=== PATIENT | male | born 1970 | race Caucasian/White ===

== ENCOUNTER → 2017-10-14 09:49 | Outpatient (CLI) | payer BC, SELFPAY ==
[2017-10-14 12:30] LABS: Hemoglobin A1c 6.3 % (4.2-6.3)
[2017-10-14 12:53] LABS: Microalbumin:Creatinine Ratio 627.5 mg/g CRE (<30 mg/g CRE)
[2017-10-14 12:56] LABS: ALB/GLOB Ratio 1.2 RATIO (0.9-2.4); AST(SGOT) 20 U/L (15-37); Alanine Aminotransfer ALT/SGPT 25 U/L (16-61); Alkaline Phosphatase 95 U/L (45-117); Anion Gap 7 (5-15); BUN 13 mg/dL (7-18); BUN/Creat Ratio 19.1 RATIO (10-20); Calcium,Total 9.9 mg/dL (8.5-10.1); Chloride 106 mmol/L (98-107); Cholesterol 173 mg/dL (200); Creatinine, Serum 0.68 mg/dL (0.70-1.30); EST Glomerular Filtration Rate 132 mL/min (>60); Est Glom Filt Rate - Afr Amer 160 mL/min (>60); Globulin 3.3 g/dL (2.2-4.2); Glucose 136 mg/dL (74-106); High Density Lipoprotein 28 mg/dL; Magnesium 1.8 mg/dL (1.6-2.6); Potassium 4.1 mmol/L (3.5-5.1); Protein, Total 7.3 g/dL (6.4-8.2); Sodium Level 139 mmol/L (136-145); Thyroid Stim Hormone (TSH) 2.52 uIU/mL (0.358-3.74); Triglycerides 178 mg/dL; Very Low Density Lipoprotein 36 mg/dL (5-40)
== END ==
PROVIDERS: Family Provider Family Medicine; PCP Family Medicine; Visit Provider Family Medicine
DX: I10 Essential (primary) hypertension (principal); E78.5 Hyperlipidemia, unspecified; E66.9 Obesity, unspecified; E11.29 Type 2 diabetes mellitus with other diabetic kidney complication; N28.9 Disorder of kidney and ureter, unspecified
CPT/HCPCS: 36415; 80053; 80061; 82043; 82570; 83036; 83735; 84443

== ENCOUNTER → 2018-04-21 08:34 | Outpatient (CLI) | payer BC, SELFPAY ==
[2018-04-21 15:59] LABS: Absolute Lymphocyte Count 1.88 X10^3/ul (0.83-4.51); Absolute Neutrophil Count 3.9 X10^3/uL (2.0-7.7); Basophil# 0.06 X10^3/uL; Basophil% 0.9 % (0-1); Eosinophil# 0.13 X10^3/uL; Hematocrit 42.9 % (40-54); Hemoglobin 14.2 g/dl (13.0-16.5); Lymphocyte # 1.88 X10^3/ul (4.0); Lymphocyte % 28.8 % (19-41); Mean Corp Hgb Conc 33.1 g/gl (32-36); Mean Corpuscular Hgb 29.6 pg (27.0-32.0); Mean Corpuscular Volume 89.6 fL (80-94); Mean Platelet Vol. 9.9 fl (6.2-12.0); Monocyte# 0.57 X10^3/uL; Monocyte% 8.7 % (0-10); Neutrophil # 3.86 X10^3/uL (2.7-7.7); Neutrophil % 59.3 % (47-70); POSITIVE COUNT NO; POSITIVE DIFFERENTIAL NO; POSITIVE MORPHOLOGY NO; Platelet Count 255 K/mm3 (150-450); RBC Distribution Width CV 12.2 % (11.6-14.6); Red Blood Count 4.79 M/mm3 (4.6-6.2); White Blood Count 6.5 K/mm3 (4.4-11.0)
[2018-04-21 16:06] LABS: ALB/GLOB Ratio 1.2 RATIO (0.9-2.4); AST(SGOT) 18 U/L (15-37); Alanine Aminotransfer ALT/SGPT 21 U/L (16-61); Albumin, Serum 3.8 g/dL (3.2-5.0); Alkaline Phosphatase 92 U/L (45-117); Anion Gap 8 (5-15); BUN 12 mg/dL (7-18); BUN/Creat Ratio 15.8 RATIO (10-20); Calcium,Total 9.5 mg/dL (8.5-10.1); Chloride 108 mmol/L (98-107); Cholesterol 176 mg/dL (200); Creatinine, Serum 0.76 mg/dL (0.70-1.30); EST Glomerular Filtration Rate 117 mL/min (>60); Est Glom Filt Rate - Afr Amer 141 mL/min (>60); Globulin 3.3 g/dL (2.2-4.2); Glucose 132 mg/dL (74-106); High Density Lipoprotein 28 mg/dL; Potassium 4.4 mmol/L (3.5-5.1); Protein, Total 7.1 g/dL (6.4-8.2); Sodium Level 139 mmol/L (136-145); Triglycerides 135 mg/dL; Very Low Density Lipoprotein 27 mg/dL (5-40)
[2018-04-21 16:25] LABS: Hemoglobin A1c 5.7 % (4.2-6.3)
== END ==
PROVIDERS: Family Provider Family Medicine; PCP Family Medicine; Visit Provider Family Medicine
DX: E78.5 Hyperlipidemia, unspecified (principal); E11.9 Type 2 diabetes mellitus without complications
CPT/HCPCS: 36415; 80053; 80061; 83036; 85025

== ENCOUNTER → 2019-03-23 | Outpatient (CLI) | payer BC, SELFPAY ==
[2019-03-23 13:56] LABS: Hematocrit 43.3 % (40-54); Mean Corp Hgb Conc 34.6 g/dL (32-36); Mean Corpuscular Hgb 30.2 pg (27.0-32.0); Mean Corpuscular Volume 87.3 fL (80-94); Mean Platelet Vol. 10.4 fl (6.2-12.0); Platelet Count 274 K/mm3 (150-450); RBC Distribution Width CV 11.5 % (11.6-14.6); RBC Distribution Width SD 36.6 fl (35.1-43.9); Red Blood Count 4.96 M/mm3 (4.6-6.2); White Blood Count 6.9 K/mm3 (4.4-11.0)
[2019-03-23 14:35] LABS: ALB/GLOB Ratio 1.2 RATIO (0.9-2.4); AST(SGOT) 17 U/L (15-37); Alanine Aminotransfer ALT/SGPT 25 U/L (16-61); Albumin, Serum 3.8 g/dL (3.2-5.0); Alkaline Phosphatase 115 U/L (45-117); Anion Gap 11 (5-15); BUN 17 mg/dL (7-18); BUN/Creat Ratio 19.1 RATIO (10-20); Calcium,Total 9.8 mg/dL (8.5-10.1); Chloride 104 mmol/L (98-107); Creatinine, Serum 0.89 mg/dL (0.70-1.30); EST Glomerular Filtration Rate 97 mL/min (>60); Est Glom Filt Rate - Afr Amer 117 mL/min (>60); Globulin 3.2 g/dL (2.2-4.2); Glucose 339 mg/dL (74-106); Potassium 4.2 mmol/L (3.5-5.1); Sodium Level 140 mmol/L (136-145); T4 Free Direct 0.98 ng/dL (0.76-1.46); Thyroid Stim Hormone (TSH) 3.26 uIU/mL (0.358-3.74)
[2019-03-23 15:06] LABS: Hemoglobin A1c 7.1 % (4.2-6.3)
[2019-03-27 12:07] LABS: Testosterone, Free 6.39 ng/dL (5.00-21.00)
[2019-03-29 13:33] LABS: Testosterone, % Free 2.72 % (1.50-4.20); Testosterone, Total 235 ng/dL (264-916)
== END | disposition home or self-care (01) ==
LOC: MFPLAB 12:15
PROVIDERS: Family Provider Family Medicine; PCP Family Medicine; Referring Provider Family Medicine; Visit Provider Family Medicine
DX: F41.1 Generalized anxiety disorder (principal); R37 Sexual dysfunction, unspecified; E11.9 Type 2 diabetes mellitus without complications
CPT/HCPCS: 36415; 80053; 83036; 84402; 84403; 84439; 84443; 84481; 85027

== ENCOUNTER → 2020-03-29 11:49 | Outpatient (CLI) | payer BC, SELFPAY ==
[2020-03-29 15:32] LABS: Absolute Lymphocyte Count 2.12 X10^3/uL (0.83-4.51); Basophil# 0.07 X10^3/uL; Eosinophil# 0.07 X10^3/uL; Hematocrit 45.3 % (40-54); Lymphocyte # 2.12 X10^3/ul (4.0); Lymphocyte % 31.2 % (19-41); Mean Corp Hgb Conc 33.1 g/dL (32-36); Mean Corpuscular Hgb 29.8 pg (27.0-32.0); Mean Corpuscular Volume 90.1 fL (80-94); Mean Platelet Vol. 9.9 fl (6.2-12.0); Monocyte# 0.45 X10^3/uL; Monocyte% 6.6 % (0-10); NRBC Flagged by Analyzer 0 % (0-5); Neutrophil # 4.04 X10^3/uL (2.7-7.7); Neutrophil % 59.6 % (47-70); Platelet Count 292 K/mm3 (150-450); RBC Distribution Width CV 11.7 % (11.6-14.6); RBC Distribution Width SD 37.7 fl (35.1-43.9); Red Blood Count 5.03 M/mm3 (4.6-6.2); White Blood Count 6.8 K/mm3 (4.4-11.0)
[2020-03-29 15:46] LABS: Hemoglobin A1c 7.8 % (3.8-5.6)
[2020-03-29 15:53] LABS: ALB/GLOB Ratio 1.2 RATIO (0.9-2.4); AST(SGOT) 16 U/L (15-37); Alanine Aminotransfer ALT/SGPT 22 U/L (16-61); Albumin, Serum 4.1 g/dL (3.2-5.0); Alkaline Phosphatase 97 U/L (45-117); Anion Gap 7 (5-15); BUN 20 mg/dL (7-18); BUN/Creat Ratio 21.7 RATIO (10-20); Calcium,Total 10.7 mg/dL (8.5-10.1); Chloride 106 mmol/L (98-107); Cholesterol 195 mg/dL (200); Creatinine, Serum 0.92 mg/dL (0.70-1.30); EST Glomerular Filtration Rate 92 mL/min (>60); Est Glom Filt Rate - Afr Amer 112 mL/min (>60); Globulin 3.5 g/dL (2.2-4.2); Glucose 211 mg/dL (74-106); High Density Lipoprotein 28 mg/dL; Potassium 4.2 mmol/L (3.5-5.1); Protein, Total 7.6 g/dL (6.4-8.2); Sodium Level 138 mmol/L (136-145); Triglycerides 402 mg/dL
== END ==
PROVIDERS: PCP Family Medicine; Referring Provider Family Medicine; Visit Provider Registered Nurse
DX: E11.9 Type 2 diabetes mellitus without complications (principal); I10 Essential (primary) hypertension
CPT/HCPCS: 36415; 80053; 80061; 83036; 85025

== ENCOUNTER → 2021-04-16 16:58 | Outpatient (CLI) | payer BC, SELFPAY ==
[2021-04-16 17:45] LABS: Absolute Lymphocyte Count 2.52 X10^3/uL (0.83-4.51); Absolute Neutrophil Count 4.1 X10^3/uL (2.0-7.7); Basophil# 0.09 X10^3/uL; Basophil% 1.2 % (0-1); Eosinophil# 0.07 X10^3/uL; Eosinophils% 0.9 % (0-5); Hematocrit 41.4 % (40-54); Hemoglobin 14.1 g/dL (13.0-16.5); Lymphocyte # 2.52 X10^3/ul (0.83-4.51); Lymphocyte % 33.9 % (19-41); Mean Corp Hgb Conc 34.1 g/dL (32-36); Mean Corpuscular Volume 88.1 fL (80-94); Mean Platelet Vol. 9.9 fl (6.2-12.0); Monocyte% 8.1 % (0-10); NRBC Flagged by Analyzer 0 % (0-5); Neutrophil % 55.2 % (47-70); Platelet Count 289 K/mm3 (150-450); RBC Distribution Width CV 11.6 % (11.6-14.6); RBC Distribution Width SD 37.2 fl (35.1-43.9); White Blood Count 7.4 K/mm3 (4.4-11.0)
[2021-04-16 18:04] LABS: ALB/GLOB Ratio 1.2 RATIO (0.9-2.4); AST(SGOT) 9 U/L (15-37); Alanine Aminotransfer ALT/SGPT 21 U/L (16-61); Alkaline Phosphatase 110 U/L (45-117); Anion Gap 7 (5-15); BUN 15 mg/dL (7-18); BUN/Creat Ratio 17.6 RATIO (10-20); Chloride 107 mmol/L (98-107); Cholesterol 186 mg/dL (200); Creatinine, Serum 0.85 mg/dL (0.70-1.30); EST Glomerular Filtration Rate 101 mL/min (>60); Est Glom Filt Rate - Afr Amer 122 mL/min (>60); Globulin 3.4 g/dL (2.2-4.2); Glucose 222 mg/dL (74-106); High Density Lipoprotein 30 mg/dL; PSA,Total - Annual Screen 0.73 ng/mL (0.00-4.00); Potassium 3.9 mmol/L (3.5-5.1); Protein, Total 7.4 g/dL (6.4-8.2); Sodium Level 139 mmol/L (136-145); Thyroid Stim Hormone (TSH) 2.52 uIU/mL (0.358-3.74); Triglycerides 349 mg/dL; Very Low Density Lipoprotein 70 mg/dL (5-40)
[2021-04-16 19:09] LABS: Microalbumin:Creatinine Ratio 268.1 mg/g CRE (<30 mg/g CRE)
== END ==
PROVIDERS: PCP Family Medicine; Referring Provider Family Medicine; Visit Provider Family Medicine
DX: I10 Essential (primary) hypertension (principal); Z12.5 Encounter for screening for malignant neoplasm of prostate
CPT/HCPCS: 36415; 80053; 80061; 82043; 82570; 84153; 84443; 85025; G0103

== ENCOUNTER → 2021-07-24 11:36 | Outpatient (CLI) | payer BC, SELFPAY ==
[2021-07-24 15:01] LABS: Absolute Lymphocyte Count 2.08 X10^3/uL (0.83-4.51); Absolute Neutrophil Count 4.3 X10^3/uL (2.0-7.7); Basophil# 0.09 X10^3/uL; Basophil% 1.3 % (0-1); Eosinophil# 0.08 X10^3/uL; Eosinophils% 1.1 % (0-5); Hematocrit 44.3 % (40-54); Hemoglobin 15.2 g/dL (13.0-16.5); Lymphocyte # 2.08 X10^3/ul (0.83-4.51); Lymphocyte % 29.1 % (19-41); Mean Corp Hgb Conc 34.3 g/dL (32-36); Mean Corpuscular Hgb 30.1 pg (27.0-32.0); Mean Corpuscular Volume 87.7 fL (80-94); Monocyte# 0.52 X10^3/uL; Monocyte% 7.3 % (0-10); NRBC Flagged by Analyzer 0 % (0-5); Neutrophil # 4.33 X10^3/uL (2.7-7.7); Neutrophil % 60.5 % (47-70); Platelet Count 297 K/mm3 (150-450); RBC Distribution Width CV 11.8 % (11.6-14.6); RBC Distribution Width SD 37.3 fl (35.1-43.9); Red Blood Count 5.05 M/mm3 (4.6-6.2); White Blood Count 7.2 K/mm3 (4.4-11.0)
[2021-07-24 15:16] LABS: Vitamin B12 1087 pg/mL (211-911)
[2021-07-24 15:19] LABS: Hemoglobin A1c 8.7 % (3.8-5.6)
[2021-07-24 15:50] LABS: AST(SGOT) 18 U/L (15-37); Alanine Aminotransfer ALT/SGPT 23 U/L (16-61); Albumin, Serum 3.7 g/dL (3.2-5.0); Alkaline Phosphatase 110 U/L (45-117); Anion Gap 7 (5-15); BUN 16 mg/dL (7-18); BUN/Creat Ratio 17.1 RATIO (10-20); Calcium,Total 10.3 mg/dL (8.5-10.1); Chloride 105 mmol/L (98-107); Creatinine, Serum 0.94 mg/dL (0.70-1.30); EST Glomerular Filtration Rate 90 mL/min (>60); Est Glom Filt Rate - Afr Amer 109 mL/min (>60); Globulin 3.7 g/dL (2.2-4.2); Glucose 274 mg/dL (74-106); Magnesium 1.7 mg/dL (1.6-2.6); Potassium 4.3 mmol/L (3.5-5.1); Protein, Total 7.4 g/dL (6.4-8.2); Sodium Level 137 mmol/L (136-145); Thyroid Stim Hormone (TSH) 2.14 uIU/mL (0.358-3.74)
== END ==
PROVIDERS: PCP Family Medicine; Referring Provider Family Medicine; Visit Provider Family Medicine
DX: E11.65 Type 2 diabetes mellitus with hyperglycemia (principal); E11.29 Type 2 diabetes mellitus with other diabetic kidney complication; R29.898 Other symptoms and signs involving the musculoskeletal system; I10 Essential (primary) hypertension; Z79.899 Other long term (current) drug therapy
CPT/HCPCS: 36415; 80053; 82607; 82746; 83036; 83735; 84443; 85025

== ENCOUNTER → 2022-04-16 | Outpatient (CLI) | payer BC, SELFPAY ==
[2022-04-16 12:51] LABS: Microalbumin:Creatinine Ratio 104.1 mg/g CRE (<30 mg/g CRE)
[2022-04-16 13:32] LABS: Hemoglobin A1c 6.1 % (3.8-5.6)
[2022-04-16 13:36] LABS: ALB/GLOB Ratio 1.2 RATIO (0.9-2.4); AST(SGOT) 17 U/L (15-37); Alanine Aminotransfer ALT/SGPT 21 U/L (16-61); Alkaline Phosphatase 86 U/L (45-117); Anion Gap 8 (5-15); BUN 18 mg/dL (7-18); BUN/Creat Ratio 19.5 RATIO (10-20); Chloride 109 mmol/L (98-107); Cholesterol 172 mg/dL (200); Creatinine, Serum 0.92 mg/dL (0.70-1.30); EST Glomerular Filtration Rate 92 mL/min (>60); Est Glom Filt Rate - Afr Amer 111 mL/min (>60); Globulin 3.3 g/dL (2.2-4.2); Glucose 146 mg/dL (74-106); High Density Lipoprotein 27 mg/dL; Potassium 4.4 mmol/L (3.5-5.1); Protein, Total 7.3 g/dL (6.4-8.2); Sodium Level 140 mmol/L (136-145); Thyroid Stim Hormone (TSH) 2.65 uIU/mL (0.358-3.74); Triglycerides 195 mg/dL; Very Low Density Lipoprotein 39 mg/dL (5-40)
== END | disposition home or self-care (01) ==
LOC: MFPLAB 10:12
PROVIDERS: PCP Family Medicine; Visit Provider Family Medicine
DX: I10 Essential (primary) hypertension (principal); E11.21 Type 2 diabetes mellitus with diabetic nephropathy
CPT/HCPCS: 36415; 80053; 80061; 82043; 82570; 83036; 84443

== ENCOUNTER → 2022-11-19 | Outpatient (CLI) | payer BC, SELFPAY ==
[2022-11-19 17:00] LABS: ALB/GLOB Ratio 1.2 RATIO (0.9-2.4); AST(SGOT) 22 U/L (15-37); Alanine Aminotransfer ALT/SGPT 24 U/L (16-61); Alkaline Phosphatase 98 U/L (45-117); Anion Gap 7 (5-15); BUN 18 mg/dL (7-18); BUN/Creat Ratio 21.7 RATIO (10-20); Calcium,Total 10.4 mg/dL (8.5-10.1); Chloride 108 mmol/L (98-107); Cholesterol 205 mg/dL (200); Creatinine, Serum 0.83 mg/dL (0.70-1.30); EST Glomerular Filtration Rate 103 mL/min (>60); Est Glom Filt Rate - Afr Amer 125 mL/min (>60); Globulin 3.3 g/dL (2.2-4.2); Glucose 150 mg/dL (74-106); High Density Lipoprotein 30 mg/dL; Protein, Total 7.3 g/dL (6.4-8.2); Sodium Level 138 mmol/L (136-145); Triglycerides 229 mg/dL; Very Low Density Lipoprotein 46 mg/dL (5-40)
[2022-11-19 17:08] LABS: Hemoglobin A1c 6.6 % (3.8-5.6)
== END | disposition home or self-care (01) ==
LOC: MFPLAB 14:07
PROVIDERS: PCP Family Medicine; Referring Provider Family Medicine; Visit Provider Family Medicine
DX: E11.9 Type 2 diabetes mellitus without complications (principal)
CPT/HCPCS: 36415; 80053; 80061; 82043; 82570; 83036

== ENCOUNTER → 2023-09-23 | Outpatient (CLI) | payer BC, SELFPAY ==
[2023-09-23 16:02] LABS: ALB/GLOB Ratio 1.2 RATIO (0.9-2.4); AST(SGOT) 22 U/L (15-37); Alanine Aminotransfer ALT/SGPT 29 U/L (16-61); Alkaline Phosphatase 98 U/L (45-117); Anion Gap 8 (5-15); BUN 11 mg/dL (7-18); BUN/Creat Ratio 10.9 RATIO (10-20); Calcium,Total 10.2 mg/dL (8.5-10.1); Chloride 103 mmol/L (98-107); Creatinine, Serum 1.01 mg/dL (0.70-1.30); EST Glomerular Filtration Rate 82 mL/min (>60); Est Glom Filt Rate - Afr Amer 99 mL/min (>60); Globulin 3.4 g/dL (2.2-4.2); Glucose 291 mg/dL (74-106); Lipase 85 U/L (13-75); Protein, Total 7.4 g/dL (6.4-8.2); Sodium Level 135 mmol/L (136-145)
== END | disposition home or self-care (01) ==
LOC: MTLAB 13:36
PROVIDERS: PCP Family Medicine; Referring Provider Family Medicine; Visit Provider Family Medicine
DX: E11.69 Type 2 diabetes mellitus with other specified complication (principal); R11.0 Nausea
CPT/HCPCS: 36415; 80053; 83690

== ENCOUNTER → 2023-10-10 | Outpatient (CLI) | payer BC, SELFPAY ==
--- OUTSIDE RECORDS SUMMARY | 2023-10-10 09:31 | XMS RPT_ITS | CCD ---
Author Name Unknown Address [id number] [place] [address] Organization [facility] Care Team Providers [employer] W[employer] Developer Name Role Phone Derrek GLASGOW, Leandro Rodriguez Primary Care Provider Allergies Allergy Classification Reported Allergen(s) Allergy Type Date of Onset Reaction(s) Facility (3 sources) atorvastatin Drug Allergy 12-22-2006 Intolerance [facility] (3 sources) Benzalkonium Drug Allergy 09-29-2019 Intolerance [facility] Work Phone: Medications Completed/Discontinued Medications Medication Drug Class(es) Dates Sig (Normalized) Sig (Original) busPIRone hydrochloride 15 mg oral tablet (3 sources) take 1 tablet by ellen th twice daily busPIRone (BUSPAR) 15 mg tablet Take 15 mg by mouth twice daily. 1 1/2 pills twice daily for 22 mg 0 Active Problems Active Problems Problem Classification Problem Date Documented Da te Episodic/Chronic Other skin disorders (3 sources) Sebaceous cyst of skin; Translations: [Sebaceous cyst] Episodic Past or Other Problems Problem Classification Problem Date Documented Da te Episodic/Chronic Other skin disorders (3 sources) Disorder of skin; Translations: [Hypertrophic disorder of the skin, unspecified] Onset: 12-22-2006 12-22-2006 Episodic Skin and subcutaneous tissue infections (3 sources) Carbuncle; Translations: [Furuncle, unspecified] Onset: 09-18-2006 09-18-2006 Episodic Results Test Name Value Interpretation Reference Range Facil ity Vital Signs Date Time Vital Sign Value Performing Clinician Faci lity 02-21-2022 12:52-0400 Body height 182.9 cm Harman Umanzor MD Work Phone: [facility] 02-21-2022 12:52-0400 Body weight 127.01 kg Harman Umanzor MD Work Phone: [facility] 02-21-2022 12:52-0400 Diastolic blood pressure 93 mm[Hg] Harman Umanzor MD Work Phone: [facility] 02-21-2022 12:52-0400 Heart rate 70 /min Harman Umanzor MD Work Phone: [facility] 02-21-2022 12:52-0400 Systolic blood pressure 167 mm[Hg] Harman Umanzor MD Work Phone: [facility] Encounters Encounter Date Encounter Type Care Provider Facility Start: 03-21-2022 End: 03-21-2022 Patient encounter procedure Harman Umanzor MD Work Phone: General Surgery Procedures Date Procedure Procedure Detail Performing Clinician Start: 11-21-2020 Colonoscopy Harman ragsdale MD Work Phone: Plan of Treatment Date Care Activity Detail Author Start: 11-21-2030 Colonoscopy COLONOSCOPY [facility] Start: 11-21-2030 COLORECTAL CANCER SCREENING COLORECTAL CANCER SCREENING [facility] Start: 04-25-2022 Influenza vaccination INFLUENZA (#1) [facility] Start: 12-03-2021 COVID-19 VACCINE (2 - Booster for Tres series) COVID-19 VACCINE (2 - Booster for Tres series) [facility] Start: 2020 SHINGRIX VACCINE (1 of 2) SHINGRIX V ACCINE (1 of 2) [facility] Start: 2015 COLOGUARD (FIT-DNA) COLOGUARD (FIT-D NA) [facility] Start: [address] COLONOGRAPHY [facility] Start: 2015 FECAL OCCULT BLOOD FECAL OCCULT BLOO D [facility] Start: 2015 [facility] Start: 1989 HEPATITIS B (1 of 3 - Risk 3-dose series) HEPATITIS B (1 of 3 - Risk 3-dose series) [facility] Start: 1989 Urine microalbumin profile DTAP,TDAP ,TD (1 - Tdap) [facility] Start: 1988 ANNUAL PCP TEAM ASSET AVAILABILITY LEADER JODY DISEASE VISIT ANNUAL PCP TEAM CHRONIC DISEASE VISIT [facility] Start: 1988 Hepatitis B surface antibody level LDL CHOLESTEROL [facility] Start: 1988 HEPATITIS C SCREENING HEPATITIS C SC REENING [facility] Start: 1988 HIV SCREENING HIV SCREENING [facility] Start: 1982 Adult depression scr eening assessment DEPRESSION SCREENING [facility] Start: 1980 3 comp foot exam completed DIABETIC FOOT EXAM [facility] Start: 1980 Hepatitis B screening URINE AL BUMIN:CREATININE RATIO [facility] Start: 1980 Hepatitis C antibody , confirmatory test DILATED RETINAL EXAM [facility] Start: 1976 PNEUMOCOCCAL (1 - PCV) PNEUMOCOCCAL (1 - PCV) [facility] Start: 1975 Hemoglobin A1c/Hemoglobin.total in Blood HBA1C [facility] Payers Date Payer Category Payer Unknown [employer]UE CARD PPO OOS [id number] 2019-Present [phone] [address] [place] [address] PPO [id number] Social History Date Type Detail Facility Tobacco smoking status NHIS Never smoked tobacco [facility] Work Phone: Start: 02-21-2022 End: 02-27-2022 Alcohol intake Current drinker of alcohol (finding) [facility] Start: 11-21-2020 History SDOH Alcohol Comment occasionally [facility] Start: 1970 Sex Assigned At Not on file C [facility] Start: 02-11-2022 End: 03-21-2022 Exposure to SARS-CoV-2 (event) Not sure [facility] Progress note 03-26-2022 Note Date & Type Note Facility 03-26-2022 Note HNO ID: [id number] Author: Harman Umanzor MD Service: ? Author Type: Physician Type: Progress Notes Filed: 03/26/2022 6:51 AM Note Text: Sebaceous cyst was no longer palpable. Visit cancelled [facility] History of Present illness Narrative 03-26-2022 Harman Umanzor MD - 03/26/2022 6:49 AM EDT Note Date & Type Note Facility 03-26-2022 History of Presen t illness Narrative Sebaceous cyst was no longer palpable. Visit cancelled documented in this encounter [facility] Progress note 02-27-2022 Note Date & Type Note Facility 02-27-2022 Note HNO ID: [id number] Author: Harman Umanzor MD Service: ? Author Type: Physician Type: Progress Notes Filed: 02/27/2022 7:38 AM Note Text: HISTORY AND PHYSICAL Lala Escobar 1970 REFERRING PHYSICIAN: Leandro Anglin MD CHIEF COMPLAINT: skin lesion HPI: The patient is a 51 year old male. He has a single sebaceous cyst on his back. It was infected a few weeks prior. He was given antibiotics and it improved. It is now less tender. SIGNIFICANT MEDICAL PROBLEMS: PAST MEDICAL HISTORY Diagnosis Date - Anxiety - Diabetes (HCC) - Hypertension OPERATIONS: PAST SURGICAL HISTORY Procedure Laterality Date - ARTHROSCOPY SHOULDER W/ROTATOR CUFF RPR Right 2015 - COLONOSCOPY SCRN NOT HIGH RISK 11/21/2020 CURRENT MEDICATIONS: Current Outpatient Medications Medication Sig Dispense Refill - ketoconazole (NIZORAL) 2 % cream - VICTOZA 3-ASHLEY 0.6 mg/0.1 mL (18 mg/3 mL) Inject 1.8 mg subcutaneously once daily. - LISINOPRIL ORAL Take 20 mg by mouth once daily. - busPIRone (BUSPAR) 15 mg tablet Take 15 mg by mouth twice daily. 1 1/2 pills twice daily for 22 mg - traZODone (DESYREL) 50 mg tablet Take 50 mg by mouth daily at bedtime. - multivit-min/ferrous fumarate (MULTI VITAMIN ORAL) Take by mouth once daily. - vitamin B complex (B COMPLEX 1 ORAL) Take by mouth once daily. - METFORMIN 500 MG TAB Take one(2) tablet two(2) times daily. 0 - ZOCOR 40 MG TAB Take one(1) tablet daily at bedtime. 0 No current facility-administered medications for this visit. ALLERGIES: Benzalkonium Chloride and Lipitor [Atorvastatin Calcium] PERSONAL HISTORY: Social History Tobacco Use - Smoking status: Never Smoker - Smokeless tobacco: Never Used Substance Use Topics - Alcohol use: Yes Comment: occasionally - Drug use: No FAMILY HISTORY: History reviewed. No pertinent family history. REVIEW OF SYMPTOMS: The review of systems data was entered by the nurse and reviewed by me Nursing Notes: Zoë Granda Tire Repairer Ca 02/22/2022 2:28 PM Signed Transcribed from erroneously cancelled office visit. -- REVIEW OF SYSTEMS: General: The patient denies fatigue, denies weight loss, denies weight gain, denies feeling hot, and denies feelings of cold. Eyes: The patient denies glaucoma, denies eye injury/surgery, wears glasses or contacts. Ear/Nose/Throat: The patient NOTES allergies, denies hayfever, denies ear infections, and denies bloody noses. Cardiovascular: The patient denies chest pain, denies heart disease, NOTES high blood pressure,denies cardiac stent, denies prior heart attack, denies irregular heart beat, denies high cholesterol, denies poor circulation, denies heart failure, other cardiac issues, denies claudication, denies cold feet, denies peripheral arterial stent. Respiratory: The patient denies tuberculosis, denies pneumonia, denies frequent cough, denies pulmonary embolism, denies shortness of breath, and denies coughing up blood. Gastrointestinal: The patient denies difficulty swallowing, denies acid reflux, denies ulcers, denies vomiting, denies jaundice/hepatitis, denies gallbladder problems, denies black or tarry stools, denies hemorrhoids, denies bleeding from rectum, denies diverticulitis, denies constipation, denies diarrhea, denies loss of stool control, and denies hernias. Kidney/Bladder: The patient denies kidney stones, denies urine infections, and denies bloody urine. Skin: The patient denies a history of skin cancer, denies bleeding/changing moles, and denies a history of skin rash. Neurologic: The patient denies a history of epilepsy/convulsions, denies headaches, denies head/spinal injuries, and denies stroke/TIA. Psychiatric: The patient denies psychiatric medications, denies depression, and denies voices, denies substance abuse. Endocrine: The patient denies thyroid disorders, NOTES diabetes, and denies hormonal problems. Hematologic: The patient denies a history of bruising, denies bleeding, and denies anemia, denies blood clots. Infections: The patient denies a history of measles and mumps, denies rheumatic fever, and denies sexually transmitted diseases. Musculoskeletal: The patient denies back pain/injury, denies back problems, denies sciatica, denies knee/foot trouble, denies arthritis, or denies gout. When was patient's last Mammogram screening? N/A Last Colonoscopy: 2020 Keesha Harris PHYSICAL EXAMINATION: General: The patient is 51 year old male, well nourished, well hydrated in no acute distress. The patient is oriented to time, place, and person. VITALS: Blood pressure 167/93, pulse 70, height 182.9 cm (6'), weight 127 kg (280 lb). Body mass index is 37.97 kg/m?. Other: Location: back - 2cm sebaceous cyst, Improving erythema LABORATORY VALUES: As Noted RADIOLOGIC STUDIES: As Noted Assessment IMPRESSION: SEBCEOUS CYST - BACK P (more content not included)... [facility] Progress note 02-27-2022 Note Date & Type Note Facility 02-27-2022 Note HNO ID: [id number] Author: Harman Umanzor MD Service: ? Author Type: Physician Type: Progress Notes Filed: 02/27/2022 7:36 AM Note Text: Error in cancelling [facility] History of Present illness Narrative 02-27-2022 Harman Umanzor MD - 02/27/2022 7:36 AM EDT Note Date & Type Note Facility 02-27-2022 History of Presen t illness Narrative HISTORY AND PHYSICAL Lala Escobar 1970 REFERRING PHYSICIAN: Leandro Anglin MD CHIEF COMPLAINT: skin lesion HPI: The patient is a 51 year old male. He has a single sebaceous cyst on his back. It was infected a few weeks prior. He was given antibiotics and it improved. It is now less tender. SIGNIFICANT MEDICAL PROBLEMS: PAST MEDICAL HISTORY Diagnosis Date Anxiety Diabetes (HCC) Hypertension OPERATIONS: PAST SURGICAL HISTORY Procedure Laterality Date ARTHROSCOPY SHOULDER W/ROTATOR CUFF RPR Right 2016 COLONOSCOPY SCRN NOT HIGH RISK 11/21/2020 CURRENT MEDICATIONS: Current Outpatient Medications Medication Sig Dispense Refill ketoconazole (NIZORAL) 2 % cream VICTOZA 3-ASHLEY 0.6 mg/0.1 mL (18 mg/3 mL) Inject 1.8 mg subcutaneously once daily. LISINOPRIL ORAL Take 20 mg by mouth once daily. busPIRone (BUSPAR) 15 mg tablet Take 15 mg by mouth twice daily. 1 1/2 pills twice daily for 22 mg traZODone (DESYREL) 50 mg tablet Take 50 mg by mouth daily at bedtime. multivit-min/ferrous fumarate (MULTI VITAMIN ORAL) Take by mouth once daily. vitamin B complex (B COMPLEX 1 ORAL) Take by mouth once daily. METFORMIN 500 MG TAB Take one(2) tablet two(2) times daily. 0 ZOCOR 40 MG TAB Take one(1) tablet daily at bedtime. 0 No current facility-administered medications for this visit. ALLERGIES: Benzalkonium Chloride and Lipitor [Atorvastatin Calcium] PERSONAL HISTORY: Social History Tobacco Use Smoking status: Never Smoker Smokeless tobacco: Never Used Substance Use Topics Alcohol use: Yes Comment: occasionally Drug use: No FAMILY HISTORY: History reviewed. No pertinent family history. REVIEW OF SYMPTOMS: The review of systems data was entered by the nurse and reviewed by ut Nursing Notes: Zoë Sigala 02/22/2022 2:28 PM Signed Transcribed from erroneously cancelled office visit. ----- REVIEW OF SYSTEMS: General: The patient denies fatigue, denies weight loss, denies weight gain, denies feeling hot, and denies feelings of cold. Eyes: The patient denies glaucoma, denies eye injury/surgery, wears glasses or contacts. Ear/Nose/Throat: The patient NOTES allergies, denies hayfever, denies ear infections, and denies bloody noses. Cardiovascular: The patient denies chest pain, denies heart disease, NOTES high blood pressure,denies cardiac stent, denies prior heart attack, denies irregular heart beat, denies high cholesterol, denies poor circulation, denies heart failure, other cardiac issues, denies claudication, denies cold feet, denies peripheral arterial stent. Respiratory: The patient denies tuberculosis, denies pneumonia, denies frequent cough, denies pulmonary embolism, denies shortness of breath, and denies coughing up blood. Gastrointestinal: The patient denies difficulty swallowing, denies acid reflux, denies ulcers, denies vomiting, denies jaundice/hepatitis, denies gallbladder problems, denies black or tarry stools, denies hemorrhoids, denies bleeding from rectum, denies diverticulitis, denies constipation, denies diarrhea, denies loss of stool control, and denies hernias. Kidney/Bladder: The patient denies kidney stones, denies urine infections, and denies bloody urine. Skin: The patient denies a history of skin cancer, denies bleeding/changing moles, and denies a history of skin rash. Neurologic: The patient denies a history of epilepsy/convulsions, denies headaches, denies head/spinal injuries, and denies stroke/TIA. Psychiatric: The patient denies psychiatric medications, denies depression, and denies voices, denies substance abuse. Endocrine: The patient denies thyroid disorders, NOTES diabetes, and denies hormonal problems. Hematologic: The patient denies a history of bruising, denies bleeding, and denies anemia, denies blood clots. Infections: The patient denies a history of measles and mumps, denies rheumatic fever, and denies sexually transmitted diseases. Musculoskeletal: The patient denies back pain/injury, denies back problems, denies sciatica, denies knee/foot trouble, denies arthritis, or denies gout. When was patient's last Mammogram screening? N/A Last Colonoscopy: 2020 Keesha Harris PHYSICAL EXAMINATION: General: The patient is 51 year old male, well nourished, well hydrated in no acute distress. The patient is oriented to time, place, and person. VITALS: Blood pressure 167/93, pulse 70, height 182.9 cm (6'), weight 127 kg (280 lb). Body mass index is 37.97 kg/m . Other: Location: back - 2cm sebaceous cyst, Improving erythema LABORATORY VALUES: As Noted RADIOLOGIC STUDIES: As Noted Assessment IMPRESSION: SEBCEOUS CYST - BACK PLAN: Lala will return for excision of the skin lesion at a later date. The patient is instructed not to take aspirin for 1 week prior to the procedure. Diagnoses: (L72.3) Sebaceous cyst (primary encounter diagnosis) Return to Clinic: The patient is instructed to follow-up with me in 1 month. Harman Umanzor MD documented in this encounter [facility] History of Present illness Narrative 02-27-2022 Harman Umanzor MD - 02/27/2022 7:35 AM EDT Note Date & Type Note Facility 02-27-2022 History of Presen t illness Narrative Error in cancelling documented in this encounter [facility] Nurse Note 02-22-2022 Zoë Granda Cma Ut - 02/22/2022 2:26 PM EDT Note Date & Type Note Facility 02-22-2022 Nurse Note Transcribed from erroneously cancelled office visit. REVIEW OF SYSTEMS: General: The patient denies fatigue, denies weight loss, denies weight gain, denies feeling hot, and denies feelings of cold. Eyes: The patient denies glaucoma, denies eye injury/surgery, wears glasses or contacts. Ear/Nose/Throat: The patient NOTES allergies, denies hayfever, denies ear infections, and denies bloody noses. Cardiovascular: The patient denies chest pain, denies heart disease, NOTES high blood pressure,denies cardiac stent, denies prior heart attack, denies irregular heart beat, denies high cholesterol, denies poor circulation, denies heart failure, other cardiac issues, denies claudication, denies cold feet, denies peripheral arterial stent. Respiratory: The patient denies tuberculosis, denies pneumonia, denies frequent cough, denies pulmonary embolism, denies shortness of breath, and denies coughing up blood. Gastrointestinal: The patient denies difficulty swallowing, denies acid reflux, denies ulcers, denies vomiting, denies jaundice/hepatitis, denies gallbladder problems, denies black or tarry stools, denies hemorrhoids, denies bleeding from rectum, denies diverticulitis, denies constipation, denies diarrhea, denies loss of stool control, and denies hernias. Kidney/Bladder: The patient denies kidney stones, denies urine infections, and denies bloody urine. Skin: The patient denies a history of skin cancer, denies bleeding/changing moles, and denies a history of skin rash. Neurologic: The patient denies a history of epilepsy/convulsions, denies headaches, denies head/spinal injuries, and denies stroke/TIA. Psychiatric: The patient denies psychiatric medications, denies depression, and denies voices, denies substance abuse. Endocrine: The patient denies thyroid disorders, NOTES diabetes, and denies hormonal problems. Hematologic: The patient denies a history of bruising, denies bleeding, and denies anemia, denies blood clots. Infections: The patient denies a history of measles and mumps, denies rheumatic fever, and denies sexually transmitted diseases. Musculoskeletal: The patient denies back pain/injury, denies back problems, denies sciatica, denies knee/foot trouble, denies arthritis, or denies gout. When was patient's last Mammogram screening? N/A Last Colonoscopy: 2020 Keesha Harris documented in this encounter [facility] Nurse Note 02-21-2022 Keesha Harris - 02/21/2022 12:54 PM EDT Note Date & Type Note Facility 02-21-2022 Nurse Note REVIEW OF SYSTEMS: General: The patient denies fatigue, denies weight loss, denies weight gain, denies feeling hot, and denies feelings of cold. Eyes: The patient denies glaucoma, denies eye injury/surgery, wears glasses or contacts. Ear/Nose/Throat: The patient NOTES allergies, denies hayfever, denies ear infections, and denies bloody noses. Cardiovascular: The patient denies chest pain, denies heart disease, NOTES high blood pressure,denies cardiac stent, denies prior heart attack, denies irregular heart beat, denies high cholesterol, denies poor circulation, denies heart failure, other cardiac issues, denies claudication, denies cold feet, denies peripheral arterial stent. Respiratory: The patient denies tuberculosis, denies pneumonia, denies frequent cough, denies pulmonary embolism, denies shortness of breath, and denies coughing up blood. Gastrointestinal: The patient denies difficulty swallowing, denies acid reflux, denies ulcers, denies vomiting, denies jaundice/hepatitis, denies gallbladder problems, denies black or tarry stools, denies hemorrhoids, denies bleeding from rectum, denies diverticulitis, denies constipation, denies diarrhea, denies loss of stool control, and denies hernias. Kidney/Bladder: The patient denies kidney stones, denies urine infections, and denies bloody urine. Skin: The patient denies a history of skin cancer, denies bleeding/changing moles, and denies a history of skin rash. Neurologic: The patient denies a history of epilepsy/convulsions, denies headaches, denies head/spinal injuries, and denies stroke/TIA. Psychiatric: The patient denies psychiatric medications, denies depression, and denies voices, denies substance abuse. Endocrine: The patient denies thyroid disorders, NOTES diabetes, and denies hormonal problems. Hematologic: The patient denies a history of bruising, denies bleeding, and denies anemia, denies blood clots. Infections: The patient denies a history of measles and mumps, denies rheumatic fever, and denies sexually transmitted diseases. Musculoskeletal: The patient denies back pain/injury, denies back problems, denies sciatica, denies knee/foot trouble, denies arthritis, or denies gout. When was patient's last Mammogram screening? 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 Advance Directive(s) 11/21/2020 8:34 AM Advance Directive(s) 11/08/2020 3:15 PM Summary Purpose Family History No Family History Records Found Additional Source Comments Source Comments (unrecognize d section and content) In the event this informatio n is protected by the Federal Confidentiality of Alcohol and Drug Abuse Patient Records regulations: The Federal rules restrict any use of the information to criminally investigate or prosecute any alcohol or drug abuse patient.[facility] the event this information is protected by the Federal Confidentiality of Alcohol and Drug Abuse Patient Records regulations: The Federal rules restrict any use of the information to criminally investigate or prosecute any alcohol or drug abuse patient.[facility] the event this information is protected by the Federal Confidentiality of Alcohol and Drug Abuse Patient Records regulations: The Federal rules restrict any use of the information to criminally investigate or prosecute any alcohol or drug abuse patient.[facility] Reason for Visit (unrecogniz ed section and content) Reason Comments Procedure Cyst, Right Upper Ba ck Reason Comments Procedure Excision Skin Lesion , Upper Back Care Teams (unrecognized sec tion and content) Net [employer] Developer Relationship Specialty Start Date End Date Leandro Anglin MD [address] [place] [id number] PCP - General Family Practice 09/20/19 (unrecognized sect ion and content) No Status Records Found INFORMATION SOURCE (unrecogn ized section and content) FOR RECORDS PERTAINING TO PATIENTS WHO ARE OR HAVE BEEN ENROLLED IN A CHEMICAL DEPENDENCY/SUBSTANCEABUSE PROGRAM, SOME INFORMATION MAY BE OMITTED. This clinical summary was aggregated from multiple sources. Caution should be exercised in using it in the provision of clinical care. This summary normalizes information from multiple sources, and as a consequence, information in this document may materially change the coding, format and clinical context of patient data. In addition, data may be omitted in some cases. CLINICAL DECISIONS SHOULD BE BASED ON THE PRIMARY CLINICAL RECORDS. [employer] [facility]. provides no warranty or guarantee of the accuracy or completeness of information in this document.
[2023-10-10 10:05] LABS: Absolute Lymphocyte Count 2.13 X10^3/uL (0.83-4.51); Absolute Neutrophil Count 3.2 X10^3/uL (2.0-7.7); Basophil# 0.09 X10^3/uL; Basophil% 1.5 % (0-1); Eosinophil# 0.11 X10^3/uL; Eosinophils% 1.8 % (0-5); Hematocrit 41.3 % (40-54); Lymphocyte # 2.13 X10^3/ul (0.83-4.51); Lymphocyte % 34.8 % (19-41); Mean Corp Hgb Conc 33.9 g/dL (32-36); Mean Corpuscular Hgb 29.7 pg (27.0-32.0); Mean Corpuscular Volume 87.7 fL (80-94); Mean Platelet Vol. 9.6 fl (6.2-12.0); Monocyte# 0.54 X10^3/uL; Monocyte% 8.8 % (0-10); NRBC Flagged by Analyzer 0 % (0-5); Neutrophil % 52.3 % (47-70); Platelet Count 286 K/mm3 (150-450); RBC Distribution Width CV 11.4 % (11.6-14.6); RBC Distribution Width SD 36.8 fl (35.1-43.9); Red Blood Count 4.71 M/mm3 (4.6-6.2); White Blood Count 6.1 K/mm3 (4.4-11.0)
[2023-10-10 11:08] LABS: AST(SGOT) 20 U/L (15-37); Alanine Aminotransfer ALT/SGPT 25 U/L (16-61); Albumin, Serum 3.7 g/dL (3.2-5.0); Alkaline Phosphatase 107 U/L (45-117); Amylase 24 U/L (25-115); Anion Gap 8 (5-15); BUN 13 mg/dL (7-18); BUN/Creat Ratio 13.7 RATIO (10-20); Calcium,Total 9.7 mg/dL (8.5-10.1); Chloride 108 mmol/L (98-107); Creatinine, Serum 0.95 mg/dL (0.70-1.30); EST Glomerular Filtration Rate 88 mL/min (>60); Est Glom Filt Rate - Afr Amer 107 mL/min (>60); Globulin 3.6 g/dL (2.2-4.2); Glucose 312 mg/dL (74-106); Lipase 61 U/L (13-75); PSA,Total - Annual Screen 0.71 ng/mL (0.00-4.00); Potassium 4.3 mmol/L (3.5-5.1); Protein, Total 7.3 g/dL (6.4-8.2); Sodium Level 138 mmol/L (136-145)
[2023-10-10 11:14] LABS: Microalbumin:Creatinine Ratio 310.2 mg/g CRE (<30 mg/g CRE)
== END | disposition home or self-care (01) ==
LOC: MFPLAB 08:59
PROVIDERS: PCP Family Medicine; Visit Provider Family Medicine
DX: R74.8 Abnormal levels of other serum enzymes (principal); Z12.5 Encounter for screening for malignant neoplasm of prostate; E66.9 Obesity, unspecified
CPT/HCPCS: 36415; 80053; 82043; 82150; 82570; 83690; 84153; 85025; G0103

== ENCOUNTER → 2024-05-18 | Outpatient (CLI) | payer BC, SELFPAY ==
[2024-05-18 15:21] LABS: Absolute Lymphocyte Count 2.55 X10^3/uL (0.83-4.51); Absolute Neutrophil Count 4.8 X10^3/uL (2.0-7.7); Basophil# 0.07 X10^3/uL; Basophil% 0.9 % (0-1); Eosinophil# 0.05 X10^3/uL; Eosinophils% 0.6 % (0-5); Hematocrit 42.2 % (40-54); Hemoglobin 13.8 g/dL (13.0-16.5); Lymphocyte # 2.55 X10^3/ul (0.83-4.51); Lymphocyte % 31.8 % (19-41); Mean Corp Hgb Conc 32.7 g/dL (32-36); Mean Corpuscular Hgb 29.6 pg (27.0-32.0); Mean Corpuscular Volume 90.6 fL (80-94); Monocyte# 0.56 X10^3/uL; NRBC Flagged by Analyzer 0 % (0-5); Neutrophil # 4.78 X10^3/uL (2.7-7.7); Neutrophil % 59.6 % (47-70); Platelet Count 327 K/mm3 (150-450); RBC Distribution Width CV 11.9 % (11.6-14.6); RBC Distribution Width SD 39.5 fl (35.1-43.9); Red Blood Count 4.66 M/mm3 (4.6-6.2)
[2024-05-18 15:51] LABS: ALB/GLOB Ratio 1.3 RATIO (0.9-2.4); AST(SGOT) 16 U/L (15-37); Alanine Aminotransfer ALT/SGPT 21 U/L (16-61); Albumin, Serum 4.2 g/dL (3.2-5.0); Alkaline Phosphatase 136 U/L (45-117); Anion Gap 6 (5-15); BUN 15 mg/dL (7-18); Calcium,Total 10.8 mg/dL (8.5-10.1); Chloride 107 mmol/L (98-107); Cholesterol 158 mg/dL (200); EST Glomerular Filtration Rate 83 mL/min (>60); Est Glom Filt Rate - Afr Amer 100 mL/min (>60); Globulin 3.2 g/dL (2.2-4.2); Glucose 112 mg/dL (74-106); High Density Lipoprotein 35 mg/dL; Lipase 32 U/L (13-75); Protein, Total 7.4 g/dL (6.4-8.2); Sodium Level 137 mmol/L (136-145); Triglycerides 86 mg/dL; Very Low Density Lipoprotein 17 mg/dL (5-40)
[2024-05-18 15:58] LABS: Hemoglobin A1c 5.1 % (3.8-5.6)
[2024-05-18 16:09] LABS: Microalbumin:Creatinine Ratio 45.3 mg/g CRE (<30 mg/g CRE)
== END | disposition home or self-care (01) ==
LOC: MFPLAB 11:07
PROVIDERS: PCP Family Medicine; Visit Provider Family Medicine
DX: E66.9 Obesity, unspecified (principal); E11.69 Type 2 diabetes mellitus with other specified complication; R11.0 Nausea
CPT/HCPCS: 36415; 80053; 80061; 82043; 82570; 83036; 83690; 85025

== ENCOUNTER → 2024-08-16 | Outpatient (CLI) | payer BC, SELFPAY ==
[2024-08-16 17:52] LABS: PTHIN 104.7 pg/mL (18.4-80.1)
[2024-08-16 17:54] LABS: ALB/GLOB Ratio 1.3 RATIO (0.9-2.4); AST(SGOT) 21 U/L (15-37); Alanine Aminotransfer ALT/SGPT 28 U/L (16-61); Albumin, Serum 3.9 g/dL (3.2-5.0); Alkaline Phosphatase 166 U/L (45-117); Anion Gap 3 (5-15); BUN 16 mg/dL (7-18); BUN/Creat Ratio 13.9 RATIO (10-20); Calcium,Total 10.6 mg/dL (8.5-10.1); Chloride 108 mmol/L (98-107); Creatinine, Serum 1.15 mg/dL (0.70-1.30); EST Glomerular Filtration Rate 70 mL/min (>60); Est Glom Filt Rate - Afr Amer 85 mL/min (>60); Glucose 128 mg/dL (74-106); Protein, Total 6.9 g/dL (6.4-8.2); Sodium Level 140 mmol/L (136-145)
[2024-08-16 17:55] LABS: Hemoglobin A1c 5.4 % (3.8-5.6)
== END | disposition home or self-care (01) ==
LOC: MFPLAB 15:41
PROVIDERS: PCP Family Medicine; Referring Provider Family Medicine; Visit Provider Family Medicine
DX: E11.29 Type 2 diabetes mellitus with other diabetic kidney complication (principal); E83.52 Hypercalcemia
CPT/HCPCS: 36415; 80053; 83036; 83970

== ENCOUNTER → 2024-08-19 | Outpatient (CLI) | payer BC, SELFPAY ==
--- NOTE | 2024-08-19 09:03 | RAD_ITS ---
INDICATION: pain anterior hip with rotation and hip flexion, also ROM decreased EXAMINATION/TECHNIQUE: X-RAY - XR Hip Unilateral with Pelvis when performed; 2-3 Views COMPARISON: Prior study dated: CT of the abdomen and pelvis dated February 21, 2009 FINDINGS: There are degenerative changes of the visualized lower lumbar spine. PELVIC BONES: No displaced fracture, destructive or sclerotic lesions. Note that overlapping bowel shadows may however obscure fine detail. Sacroiliac joints are unremarkable. No widening of the pubic symphysis. HIPS: There are degenerative changes of the hips characterized by joint space narrowing and subchondral sclerosis. SOFT TISSUES: No soft tissue swelling or gas. RAD/HIP, UNI W/ Pelvis 2-3 Views IMPRESSION: Degenerative changes of the hips. Electronically Signed: Kelsy Javed MD at 9:25 EST ,
== END | disposition home or self-care (01) ==
LOC: MTRAD 09:02
PROVIDERS: PCP Family Medicine; Referring Provider Family Medicine; Visit Provider Family Medicine
DX: M25.552 Pain in left hip (principal)
CPT/HCPCS: 73502

== ENCOUNTER → 2024-11-16 | Outpatient (CLI) | payer BC, SELFPAY ==
[2024-11-16 16:09] LABS: Absolute Lymphocyte Count 2.15 X10^3/uL (0.83-4.51); Absolute Neutrophil Count 4.1 X10^3/uL (2.0-7.7); Basophil% 1.5 % (0-1); Eosinophil# 0.04 X10^3/uL; Eosinophils% 0.6 % (0-5); Hematocrit 42.2 % (40-54); Lymphocyte # 2.15 X10^3/ul (0.83-4.51); Lymphocyte % 31.3 % (19-41); Mean Corp Hgb Conc 33.2 g/dL (32-36); Mean Corpuscular Volume 90.6 fL (80-94); Monocyte# 0.49 X10^3/uL; Monocyte% 7.1 % (0-10); NRBC Flagged by Analyzer 0 % (0-5); Neutrophil # 4.06 X10^3/uL (2.7-7.7); Neutrophil % 59.2 % (47-70); Platelet Count 304 K/mm3 (150-450); RBC Distribution Width CV 11.8 % (11.6-14.6); RBC Distribution Width SD 38.5 fl (35.1-43.9); Red Blood Count 4.66 M/mm3 (4.6-6.2); White Blood Count 6.9 K/mm3 (4.4-11.0)
[2024-11-16 16:59] LABS: Microalbumin:Creatinine Ratio 976.4 mg/g CRE
[2024-11-16 17:04] LABS: PTHIN 72 pg/mL (11-61)
[2024-11-16 17:16] LABS: ALB/GLOB Ratio 1.6 RATIO (0.9-2.4); AST(SGOT) 26 U/L (<=37); Alanine Aminotransfer ALT/SGPT 15 U/L (<=46); Albumin, Serum 4.4 g/dL (3.5-5.0); Alkaline Phosphatase 138 U/L (40-129); Anion Gap 10 (5-15); BUN 17 mg/dL (4-19); BUN/Creat Ratio 19.5 RATIO (10-20); Carbon Dioxide 24.4 mmol/L (21.0-32.0); Chloride 105 mmol/L (98-108); Creatinine, Serum 0.89 mg/dL (0.70-1.20); EST Glomerular Filtration Rate 102 (>60); Globulin 2.7 g/dL (2.2-4.2); Glucose 137 mg/dL (70-99); Potassium 4.8 mmol/L (3.3-5.1); Protein, Total 7.2 g/dL (5.9-8.4); Sodium Level 139 mmol/L (133-145)
[2024-11-16 17:27] LABS: Vitamin D,25 Hydroxy 22.1 ng/mL (30-100)
[2024-11-16 21:52] LABS: Hemoglobin A1c 5.8 % (<=5.6)
== END | disposition home or self-care (01) ==
LOC: MFPLAB 11:30
PROVIDERS: PCP Family Medicine; Referring Provider Family Medicine; Visit Provider Family Medicine
DX: R79.89 Other specified abnormal findings of blood chemistry (principal); E11.29 Type 2 diabetes mellitus with other diabetic kidney complication
CPT/HCPCS: 36415; 80053; 82043; 82306; 82570; 83036; 83970; 84443; 85025

== ENCOUNTER → 2025-02-15 | Outpatient (CLI) | payer BC, SELFPAY ==
[2025-02-15 16:12] LABS: PTHIN 64 pg/mL (11-61)
[2025-02-15 16:19] LABS: ALB/GLOB Ratio 1.8 RATIO (0.9-2.4); AST(SGOT) 21 U/L (<=37); Alanine Aminotransfer ALT/SGPT 13 U/L (<=46); Albumin, Serum 4.3 g/dL (3.5-5.0); Alkaline Phosphatase 127 U/L (40-129); Anion Gap 11 (5-15); BUN 21 mg/dL (4-19); BUN/Creat Ratio 23.3 RATIO (10-20); Calcium,Total 10.4 mg/dL (7.6-11.0); Carbon Dioxide 23.1 mmol/L (21.0-32.0); Chloride 104 mmol/L (98-108); EST Glomerular Filtration Rate 102 (>60); Globulin 2.4 g/dL (2.2-4.2); Glucose 138 mg/dL (70-99); Potassium 4.3 mmol/L (3.3-5.1); Protein, Total 6.7 g/dL (5.9-8.4); Sodium Level 138 mmol/L (133-145); Total Bilirubin 0.55 mg/dL (0.00-1.30)
[2025-02-15 16:24] LABS: Vitamin D,25 Hydroxy 28.7 ng/mL (30-100)
[2025-02-15 16:28] LABS: Hemoglobin A1c 5.7 % (<=5.6)
[2025-02-15 19:58] LABS: Microalbumin:Creatinine Ratio 62.1 mg/g CRE
== END | disposition home or self-care (01) ==
LOC: MFPLAB 13:38
PROVIDERS: PCP Family Medicine; Referring Provider Family Medicine; Visit Provider Family Medicine
DX: E11.29 Type 2 diabetes mellitus with other diabetic kidney complication (principal); E55.9 Vitamin D deficiency, unspecified
CPT/HCPCS: 36415; 80053; 82043; 82306; 82570; 83036; 83970

== ENCOUNTER → 2025-05-19 | Outpatient (CLI) | payer BC, SELFPAY ==
[2025-05-19 13:00] LABS: AST(SGOT) 20 U/L (<=37); Alanine Aminotransfer ALT/SGPT 18 U/L (<=46); Albumin, Serum 4.2 g/dL (3.5-5.0); Alkaline Phosphatase 126 U/L (40-129); Anion Gap 10 (5-15); BUN 18 mg/dL (4-19); BUN/Creat Ratio 23.8 RATIO (10-20); Calcium,Total 10.0 mg/dL (7.6-11.0); Carbon Dioxide 23.3 mmol/L (21.0-32.0); Chloride 107 mmol/L (98-108); Cholesterol 142 mg/dL (<=200); Globulin 2.6 g/dL (2.2-4.2); Glucose 128 mg/dL (70-99); Lipase 37 U/L (13-75); Low Density Lipoprotein Calc. 90 mg/dL; Potassium 4.4 mmol/L (3.3-5.1); Triglycerides 61 mg/dL; Very Low Density Lipoprotein 12 mg/dL (5-40); Vitamin D,25 Hydroxy 35.2 ng/mL (30-100); cholesterol:hdl ratio screen 3.56
== END | disposition home or self-care (01) ==
LOC: MFPLAB 09:09
PROVIDERS: PCP Family Medicine; Visit Provider Family Medicine
DX: E11.29 Type 2 diabetes mellitus with other diabetic kidney complication (principal)
CPT/HCPCS: 36415; 80053; 80061; 82306; 83036; 83690

== ENCOUNTER → 2025-06-17 | Outpatient (CLI) | payer BC, SELFPAY ==
--- NOTE | 2025-06-17 14:48 | CT_ITS ---
PROCEDURE: LIMITED CHEST CT CARDIAC ONLY 06/17/2025 REASON FOR EXAM: OTHER SPECIFIED PERSONAL RISK FACTORS, NOT ELSEWHERE CLASSIFIED TECHNIQUE: Procedure Code: [id number] Modality: CT Procedure: LIMITED CHEST CT CARDIAC ONLY CONTRAST: None One or more dose reduction techniques were used (e.g., Automated exposure control, adjustment of the mA and/or kV according to patient size, use of iterative reconstruction technique). RADIATION DOSE SUMMARY: CTDlvol: 12.19 mGy DLP: 195.04 mGycm COMPARISON: None FINDINGS: Calcification of the right and left coronary arteries. The heart is nonenlarged. No significant mediastinal lymphadenopathy. 1 the lungs are clear. CT/Limited Chest CT Cardiac Only IMPRESSION: Coronary artery calcification. Reading Location: [id number]
--- OUTSIDE RECORDS SUMMARY | 2025-06-17 16:00 | XMS RPT_ITS | CCD ---
Author Organization [facility] Care Team Providers Care Lead Network Engineer Name Role Phone Jame Anglin MD Primary Care Provider [phone] Derrek GLASGOW, Dr. Reeves Primary Care Provider Derrek GLASGOW, Dr. Reeves Attending Provider Dr. Jame Anglin MD Referring Provider Derrek GLASGOW, Dr. Reeves Primary Care Provider Derrek GLASGOW, Dr. Reeves Attending Provider Derrek GLASGOW, Dr. Reeves Referring Provider Anglin, Jame Primary Care Unavailable Anglin, Jame Referring Unavailable Anglin, Jame Attending Unavailable Anglin, Jame Primary Care Unavailable Anglin, Jame Referring Unavailable Anglin, Jame Attending Unavailable Anglin, Jame Primary Care Unavailable Anglin, Jame Referring Unavailable Anglin, Jame Attending Unavailable Anglin, Jame Primary Care Unavailable Anglin, Jame Referring Unavailable Anglin, Jame Attending Unavailable Anglin, Jame Primary Care Unavailable Anglin, Jame Referring Unavailable Anglin, Jame Attending Unavailable Anglin, Jame Primary Care Unavailable Anglin, Jame Attending Unavailable Anglin, Jame Primary Care Unavailable Anglin, Jame Referring Unavailable Anglin, Jame Attending Unavailable Allergies Allergy Classification Reported Allergen(s) Allergy Type Date of Onset Reaction(s) Facility (5 sources) atorvastatin Drug Allergy 12-22-2006 Intolerance [facility] (3 sources) Benzalkonium Drug Allergy 09-29-2019 Intolerance [facility] Work Phone: (1 source) atorvastatin Drug Allergy 01-12-2023 [facility] Repository Medications Current Medications Medication Drug Class(es) Dates Sig (Normalized) Sig (Original) acetaminophen 325 mg / oxyCODONE hydrochloride 5 mg oral tablet (6 sources) Opioid Agonist Start: 07-12-2014 Oxycodone-Acetamin ophen 1 TABLET tablet Active 1 - 2 {tbl} PO EVERY 4 HOURS NEEDED as needed for Pain 60 July 12, 2014 1:00am Start: 07-12-2014 take 1 tablet by ellen th every four hours as needed Oxycodone-Acetaminophen Active 1 - 2 TABLET PO EVERY 4 HOURS NEEDED 60 July 12, 2014 12:00am docusate sodium 100 mg oral capsule (6 sources) Start: 07-12-2014 take 1 capsule by mouth twice daily as needed for constipation Docusate Sodium (Colace) 100 MG capsule Active 100 mg PO TWICE DAILY NEEDED as needed for Constipation 10 0 July 12, 2014 1:00am glipiZIDE er 5 mg 24 hr extended release oral tablet (6 sources) Sulfonylurea Start: 10-11-2013 take 1 tablet by mouth twice daily Glipizide 5 MG tablet extended release 24hr Active 10 mg PO TWICE A DAY October 11, 2013 1:00am Start: 10-11-2013 take 10 mg by mouth twice cecy y Glipizide Active 10 MG PO TWICE A DAY October 11, 2013 12:00am 3 ml liraglutide 6 mg/ml pen injector (9 sources) GLP-1 Receptor Agonist Start: 07-05-2014 Liraglutide (Victoza 2-Ashley) 0.6 MG/0.1 ML Ml Active 1.8 mg SQ DAILY July 05, 2014 1:00am Comment on above: Inject 1.8 mg subcut aneously once daily. lisinopril 10 mg oral tablet (9 sources) Angiotensin Converting Enzyme Inhibitor Start: 10-11-2013 take 1 tablet by mouth at bedtime Lisinopril 10 MG tablet Active 10 mg PO AT BEDTIME October 11, 2013 1:00am take 20 mg by mouth once daily L ISINOPRIL ORAL Take 20 mg by mouth once daily. 0 Active Comment on above: Take 20 mg by mouth once daily. metFORMIN hydrochloride 500 mg oral tablet (9 sources) Biguanide Start: 4 take 1 tablet by mouth twice daily at mealtime Metformin 500 MG tablet Active 500 mg PO TWICE DAILY WITH MEALS October 11, 2013 1:00am Start: 09-18-2006 METFORMIN 500 MG TAB Take one(2) tablet two(2) times daily. 0 09/18/2006 Active Comment on above: Take one(2) tablet t wo(2) times daily. Multivitamin With Folic Acid (Thera) 1 TABLET tablet (6 sources) Start: 07-05-2014 take 1 tablet by mouth once daily Multivitamin With Folic Acid (Thera) 1 TABLET tablet Active 1 {tbl} PO DAILY July 05, 2014 1:00am Start: 07-05-2014 take 1 tablet by ellen th once daily Multivitamin With Folic Acid (Thera) 1 TABLET tablet Active 1 TABLET PO DAILY July 05, 2014 12:00am Start: 07-05-2014 take 1 tablet by ellen th once daily Multivitamin With Folic Acid (Thera) 1 TABLET tablet Active 1 TABLET PO DAILY July 05, 2014 1:00am promethazine hydrochloride 25 mg oral tablet (6 sources) Phenothiazine Start: 07-12-2014 take 1 tablet by mouth every four hours as needed for nausea Promethazine 25 MG tablet Active 25 mg PO EVERY 4 HOURS NEEDED as needed for Nausea 10 0 July 12, 2014 1:00am simvastatin 40 mg oral tablet (9 sources) HMG-CoA Reductase Inhibitor Start: 09-18-2006 take 1 tablet by mouth at bedtime Simvastatin 40 MG tablet Active 40 mg PO AT BEDTIME October 11, 2013 1:00am Comment on above: Take one(1) tablet d aily at bedtime. Vitamin B Complex (7 sources) Start: 07-05-2014 Vitamin B Complex Active 1 EACH PO DAILY July 05, 2014 12:00am Start: 07-05-2014 Vitamin B Comp sandy Active 1 EACH PO DAILY July 05, 2014 1:00am vitamin B comple x (B COMPLEX 1 ORAL) Take by mouth once daily. 0 Active Comment on above: Take by mouth once d aily. Vitamin B Complex 1 EACH capsule (2 sources) Start: 07-05-2014 Vitamin B Complex 1 EACH capsule Active 1 NMA PO DAILY July 05, 2014 1:00am Completed/Discontinued Medications Medication Drug Class(es) Dates Sig (Normalized) Sig (Original) busPIRone hydrochloride 15 mg oral tablet (3 sources) take 1 tablet by mouth twice daily busPIRone (BUSPAR) 15 mg tablet Take 15 mg by mouth twice daily. 1 1/2 pills twice daily for 22 mg 0 Active Comment on above: Take 15 mg by mouth twice daily. 1 1/2 pills twice daily for 22 mg ketoconazole 20 mg/ml topical cream (3 sources) Azole Antifungal Start: 09-12-2020 ketoconazole (NIZORAL) 2 % cream multivit-min/ferrous fumarate (MULTI VITAMIN ORAL) (3 sources) multivit-min/cindi ro us fumarate (MULTI VITAMIN ORAL) Take by mouth once daily. 0 Active Comment on above: Take by mouth once d aily. predniSONE 10 mg oral tablet (4 sources) Start: 01-12-2023 End: 01-27-2023 Prednisone 10 mg tablet Discontinued 10 mg PO .COMPLEX 35 15 0 January 12, 2023 12:00am January 26, 2023 12:00am January 27, 2023 12:04am 10 mg orally; 40mg x5 days, 20mg x5 days, 10mg x5 days Start: 01-12-2023 End: 01-27-2023 Prednisone Discontinued 10 M G PO .COMPLEX 35 15 January 11, 2023 11:00pm January 26, 2023 11:04pm 10 mg orally; 40mg x5 days, 20mg x5 days, 10mg x5 days traZODone hydrochloride 50 mg oral tablet (3 sources) Serotonin Reuptake Inhibitor take 1 tablet by mouth once daily at bedtime traZODone (DESYREL) 50 mg tablet Take 50 mg by mouth daily at bedtime. 0 Active Comment on above: Take 50 mg by mouth daily at bedtime. Problems Active Problems Problem Classification Problem Date Documented Da te Episodic/Chronic Allergic reactions (4 sources) Acute dermatitis; Translations: [Dermatitis, unspecified] 01-12-2023 Episodic Diabetes mellitus with complications (1 source) Type 2 diabetes mellitus with other diabetic kidney complication; Translations: [Type 2 diabetes mellitus with other diabetic kidney complication] Onset: 06-15-2025 Chronic Other skin disorders (3 sources) Sebaceous cyst of skin; Translations: [Sebaceous cyst] Episodic Residual codes; unclassified (1 source) Other specified personal risk factors, not elsewhere classified; Translations: [Other specified personal risk factors, not elsewhere classified] Onset: 06-03-2025 Episodic Past or Other Problems Problem Classification Problem Date Documented Da te Episodic/Chronic Other non-traumatic joint disorders (1 source) Pain in left hip; Translations: [Pain in left hip] Onset: 09-15-2024 Episodic Other screening for suspected conditions (not mental disorders or infectious disease) (1 source) Other specified abnormal findings of blood chemistry; Translations: [Other specified abnormal findings of blood chemistry] Onset: 11-22-2024 Episodic Other skin disorders (3 sources) Disorder of skin; Translations: [Hypertrophic disorder of the skin, unspecified] Onset: 12-22-2006 12-22-2006 Episodic Skin and subcutaneous tissue infections (3 sources) Carbuncle; Translations: [Furuncle, unspecified] Onset: 09-18-2006 09-18-2006 Episodic Results Test Name Value Interpretation Reference Range Facility Comprehensive Metabolic Prof [facility] 05-19-2025 Albumin [Mass/Vol] 4.2 g/dL Normal 3.5-5.0 [facility] Comment on above: Performed By: #### L [id number], L506.1001, L501.2450, L500.4050, L500.4100 #### [facility] [address] [place], [address] Albumin/Globulin [Mass ratio] 1.6 {ratio} Normal 0.9-2.4 [facility] Comment on above: Performed By: #### L [id number], L506.1001, L501.2450, L500.4050, L500.4100 #### [facility] [address] [place], [address] ALK PHOS 126 U/L Normal 40-129 [facility] Comment on above: Performed By: #### L [id number], L506.1001, L501.2450, L500.4050, L500.4100 #### [facility] [address] [place], [address] ALT [Catalytic activity/Vol] 18 U/L Normal <=46 [facility] Comment on above: Performed By: #### L [id number], L506.1001, L501.2450, L500.4050, L500.4100 #### [facility] [address] [place], [address] AST [Catalytic activity/Vol] 20 U/L Normal <=37 [facility] Comment on above: Performed By: #### L [id number], L506.1001, L501.2450, L500.4050, L500.4100 #### [facility] [address] [place], [address] Bilirubin [Mass/Vol] 0.40 mg/dL Normal 0.00-1.30 [facility] Comment on above: Performed By: #### L [id number], L506.1001, L501.2450, L500.4050, L500.4100 #### [facility] [address] [place], [address] BUN/CRE 23.8 RATIO High 10-20 [facility] Comment on above: Performed By: #### L [id number], L506.1001, L501.2450, L500.4050, L500.4100 #### [facility] [address] [place], [address] Calcium [Mass/Vol] 10.0 mg/dL Normal 7.6-11.0 [facility] Comment on above: Performed By: #### L [id number], L506.1001, L501.2450, L500.4050, L500.4100 #### [facility] [address] [place], [address] Chloride [Moles/Vol] 107 mmol/L Normal 98-108 [facility] Comment on above: Performed By: #### L [id number], L506.1001, L501.2450, L500.4050, L500.4100 #### [facility] [address] [place], [address] CO2 [Moles/Vol] 23.3 mmol/L Normal 21.0-32.0 [facility] Comment on above: Performed By: #### L [id number], L506.1001, L501.2450, L500.4050, L500.4100 #### [facility] [address] [place], [address] Creatinine [Mass/Vol] 0.74 mg/dL Normal 0.70-1.20 [facility] Comment on above: Performed By: #### L [id number], L506.1001, L501.2450, L500.4050, L500.4100 #### [facility] [address] [place], [address] GAP 10 Normal 5-15 [facility] Comment on above: Performed By: #### L [id number], L506.1001, L501.2450, L500.4050, L500.4100 #### [facility] [address] [place], [address] GFR/1.73 sq M.predicted among non-blacks MDRD (S/P/Bld) [Vol rate/Area] 107 mL/min/{1.73_m2} Normal >60 [facility] Comment on above: Result Comment: mL/m in/1.73m2 CKD-EPI Creatinine Equation (2020) Performed By: #### L 501.9985, L506.1001, L501.2450, L500.4050, L500.4100 #### [facility] [address] [place], [address] Globulin (S) [Mass/Vol] 2.6 g/dL Normal 2.2-4.2 [facility] Comment on above: Performed By: #### L 501.9985, L506.1001, L501.2450, L500.4050, L500.4100 #### [facility] [address] [place], [address] Glucose [Mass/Vol] 128 mg/dL High 70-99 [facility] Comment on above: Performed By: #### L 501.9985, L506.1001, L501.2450, L500.4050, L500.4100 #### [facility] [address] [place], [address] Potassium [Moles/Vol] 4.4 mmol/L Normal 3.3-5.1 [facility] Comment on above: Performed By: #### L 501.9985, L506.1001, L501.2450, L500.4050, L500.4100 #### [facility] [address] [place], [address] Sodium [Moles/Vol] 140 mmol/L Normal 133-145 [facility] Comment on above: Performed By: #### L 501.9985, L506.1001, L501.2450, L500.4050, L500.4100 #### [facility] [address] [place], [address] T PROT 6.8 g/dL Normal 5.9-8.4 [facility] Comment on above: Performed By: #### L 501.9985, L506.1001, L501.2450, L500.4050, L500.4100 #### [facility] [address] [place], [address] Urea nitrogen [Mass/Vol] 18 mg/dL Normal 4-19 [facility] Comment on above: Performed By: #### L 501.9985, L506.1001, L501.2450, L500.4050, L500.4100 #### [facility] [address] [place], [address] Hemoglobin A1con 05-19-2025 HbA1c (Bld) [Mass fraction] 4.9 % Normal <=5.6 [facility] Comment on above: Result Comment: Norm al < 5.7 % Prediabetic 5.7 - 6.4 % Diabetic >or= 6.5 % Please note range changes. Performed By: #### L 501.9985, L506.1001, L501.2450, L500.4050, L500.4100 #### [facility] [address] [place], [address] Lipaseon 05-19-2025 Lipase [Catalytic activity/Vol] 37 U/L Normal 13-75 [facility] Comment on above: Result Comment: Kurtis foster note: LIPASE revised reference range effective 22. New Lipase methodology. Expected to produce lower values than the previous assay method. NEW Reference Range: 13 - 75 U/L Performed By: #### L 501.9985, L506.1001, L501.2450, L500.4050, L500.4100 #### [facility] [address] [place], [address] Lipid Profileon 05-19-2025 CHOL:HDL 3.56 Normal [facility] Comment on above: Performed By: #### L 501.9985, L506.1001, L501.2450, L500.4050, L500.4100 #### [facility] [address] [place], [address] Cholesterol [Mass/Vol] 142 mg/dL Normal <=200 [facility] Comment on above: Result Comment: Chol esterol level, Desirable <200 mg/dL Borderline high cholesterol 200-239 mg/dL High cholesterol >=240 mg/dL Recommendations of the NCEP Adult Treatment Panel for the following risk-cutoff thresholds for the [place] population. Performed By: #### L 501.9985, L506.1001, L501.2450, L500.4050, L500.4100 #### [facility] [address] [place], [address] Cholesterol in HDL [Mass/Vol] 40 mg/dL Normal [facility] Comment on above: Result Comment: Estela onal Cholesterol Education Program (NCEP) guidelines: <40 mg/dL: Low HDL-cholesterol (major risk factor for CHD) >= 60 mg/dL: High HDL-cholesterol (negative risk factor for CHD) HDL-cholesterol is affected by a number of factors, e.g. smoking, exercise, hormones, sex and age. Performed By: #### L 501.9985, L506.1001, L501.2450, L500.4050, L500.4100 #### [facility] [address] [place], [address] Cholesterol in LDL [Mass/Vol] 90 mg/dL Normal [facility] Comment on above: Result Comment: Bord zxtvoe=471-818 mg/dL Higher Gvin=817 mg/dL or greater Friedwald Equation for LDL-C Performed By: #### L 501.9985, L506.1001, L501.2450, L500.4050, L500.4100 #### [facility] [address] [place], [address] Cholesterol in VLDL [Mass/Vol] 12 mg/dL Normal 5-40 [facility] Comment on above: Performed By: #### L 501.9985, L506.1001, L501.2450, L500.4050, L500.4100 #### [facility] [address] [place], [address] Triglyceride [Mass/Vol] 61 mg/dL Normal [facility] Comment on above: Result Comment: The drugs N-Acetylcysteine and Metamizole may falsely depress this assay. Normal range: <150 mg/dL Borderline High: 150-199 mg/dL High: 200-499 mg/dL Very High: >500 mg/dL Performed By: #### L 501.9985, L506.1001, L501.2450, L500.4050, L500.4100 #### [facility] [address] [place], [address] Vitamin D,25 Hydroxyon 05-19 Vitamin D 25-OH 35.2 ng/mL Normal 30-100 [facility] Comment on above: Result Comment: Jagruti min D Status Deficiency: <20 ng/mL (50nmol/L) Insufficiency: 20-30 ng/mL (50-75 nmol/L) Sufficiency: 30-100 ng/mL (75-250 nmol/L) Toxicity: >100 ng/mL (>250 nmol/L) Performed By: #### L 501.9985, L506.1001, L501.2450, L500.4050, L500.4100 #### [facility] [address] [place], [address] Anion gap in Serum or Plasma Ordered By: Jame Anglin on 02-15-2025 Anion gap [Moles/Vol] 11 mmol/L 5-15 [facility] BUN/creatinine ratioOrdered By: Jame Anglin on 02-15-2025 Urea nitrogen/Creatinine [Mass ratio] 23.3 mg/mg High 10-20 [facility] Bilirubin, totalOrdered By: Jame Anglin on 02-15-2025 Bilirubin [Mass/Vol] 0.55 mg/dL 0.00-1.30 [facility] Carbon dioxide, total [Moles /volume] in Central venous bloodOrdered By: Jame Anglin on 02-15-2025 CO2 [Moles/Vol] 23.1 mmol/L 21.0-32.0 [facility] Chloride assayOrdered By: Roderick Anglin on 02-15-2025 Chloride [Moles/Vol] 104 mmol/L 98-108 [facility] Comprehensive Metabolic Prof ilon 02-15-2025 Albumin [Mass/Vol] 4.3 g/dL Normal 3.5-5.0 [facility] Comment on above: Order Comment: Order Date: 11/22/24Order Info: 0786-1 - CMP Performed By: #### L 501.9985, L506.1001, L501.2450, L500.4050, L500.4100 #### [facility] [address] [place], [place], [id number] Albumin/Globulin [Mass ratio] 1.8 {ratio} Normal 0.9-2.4 [facility] Comment on above: Order Comment: Order Date: 11/22/24Order Info: 0786-1 - CMP Performed By: #### L 501.9985, L506.1001, L501.2450, L500.4050, L500.4100 #### [facility] [address] [place], [address] ALK PHOS 127 U/L Normal 40-129 [facility] Comment on above: Order Comment: Order Date: 11/22/24Order Info: 0786-1 - CMP Performed By: #### L 501.9985, L506.1001, L501.2450, L500.4050, L500.4100 #### [facility] [address] [place], [address] ALT [Catalytic activity/Vol] 13 U/L Normal <=46 [facility] Comment on above: Order Comment: Order Date: 11/22/24Order Info: 0786-1 - CMP Performed By: #### L 501.9985, L506.1001, L501.2450, L500.4050, L500.4100 #### [facility] [address] [place], [address] AST [Catalytic activity/Vol] 21 U/L Normal <=37 [facility] Comment on above: Order Comment: Order Date: 11/22/24Order Info: 0786-1 - CMP Performed By: #### L 501.9985, L506.1001, L501.2450, L500.4050, L500.4100 #### [facility] [address] [place], [address] Bilirubin [Mass/Vol] 0.55 mg/dL Normal 0.00-1.30 [facility] Comment on above: Order Comment: Order Date: 11/22/24Order Info: 0786-1 - CMP Performed By: #### L 501.9985, L506.1001, L501.2450, L500.4050, L500.4100 #### [facility] [address] [place], [address] BUN/CRE 23.3 RATIO High 10-20 [facility] Comment on above: Order Comment: Order Date: 11/22/24Order Info: 0786-1 - CMP Performed By: #### L 501.9985, L506.1001, L501.2450, L500.4050, L500.4100 #### [facility] [address] [place], [address] Calcium [Mass/Vol] 10.4 mg/dL Normal 7.6-11.0 [facility] Comment on above: Order Comment: Order Date: 11/22/24Order Info: 0786-1 - CMP Performed By: #### L 501.9985, L506.1001, L501.2450, L500.4050, L500.4100 #### [facility] [address] [place], [address] Chloride [Moles/Vol] 104 mmol/L Normal 98-108 [facility] Comment on above: Order Comment: Order Date: 11/22/24Order Info: 0786-1 - CMP Performed By: #### L 501.9985, L506.1001, L501.2450, L500.4050, L500.4100 #### [facility] [address] [place], [address] CO2 [Moles/Vol] 23.1 mmol/L Normal 21.0-32.0 [facility] Comment on above: Order Comment: Order Date: 11/22/24Order Info: 0786-1 - CMP Performed By: #### L 501.9985, L506.1001, L501.2450, L500.4050, L500.4100 #### [facility] [address] [place], [address] Creatinine [Mass/Vol] 0.90 mg/dL Normal 0.70-1.20 [facility] Comment on above: Order Comment: Order Date: 11/22/24Order Info: 0786-1 - CMP Performed By: #### L 501.9985, L506.1001, L501.2450, L500.4050, L500.4100 #### [facility] [address] [place], [address] GAP 11 Normal 5-15 [facility] Comment on above: Order Comment: Order Date: 11/22/24Order Info: 0786-1 - CMP Performed By: #### L 501.9985, L506.1001, L501.2450, L500.4050, L500.4100 #### [facility] [address] [place], [address] GFR/1.73 sq M.predicted among non-blacks MDRD (S/P/Bld) [Vol rate/Area] 102 mL/min/{1.73_m2} Normal >60 [facility] Comment on above: Order Comment: Order Date: 11/22/24Order Info: 0786-1 - CMP Result Comment: mL/m in/1.73m2 CKD-EPI Creatinine Equation (2020) Performed By: #### L 501.9985, L506.1001, L501.2450, L500.4050, L500.4100 #### [facility] [address] [place], [address] Globulin (S) [Mass/Vol] 2.4 g/dL Normal 2.2-4.2 [facility] Comment on above: Order Comment: Order Date: 11/22/24Order Info: 0786-1 - CMP Performed By: #### L 501.9985, L506.1001, L501.2450, L500.4050, L500.4100 #### [facility] [address] [place], [address] Glucose [Mass/Vol] 138 mg/dL High 70-99 [facility] Comment on above: Order Comment: Order Date: 11/22/24Order Info: 0786-1 - CMP Performed By: #### L 501.9985, L506.1001, L501.2450, L500.4050, L500.4100 #### [facility] [address] [place], [address] Potassium [Moles/Vol] 4.3 mmol/L Normal 3.3-5.1 [facility] Comment on above: Order Comment: Order Date: 11/22/24Order Info: 0786-1 - CMP Performed By: #### L 501.9985, L506.1001, L501.2450, L500.4050, L500.4100 #### [facility] [address] [place], [address] Sodium [Moles/Vol] 138 mmol/L Normal 133-145 [facility] Comment on above: Order Comment: Order Date: 11/22/24Order Info: 0786-1 - CMP Performed By: #### L 501.9985, L506.1001, L501.2450, L500.4050, L500.4100 #### [facility] [address] [place], [address] T PROT 6.7 g/dL Normal 5.9-8.4 [facility] Comment on above: Order Comment: Order Date: 11/22/24Order Info: 0786-1 - CMP Performed By: #### L 501.9985, L506.1001, L501.2450, L500.4050, L500.4100 #### [facility] [address] [place], [address] Urea nitrogen [Mass/Vol] 21 mg/dL High 4-19 [facility] Comment on above: Order Comment: Order Date: 11/22/24Order Info: 0786-1 - CMP Performed By: #### L 501.9985, L506.1001, L501.2450, L500.4050, L500.4100 #### [facility] [address] [place], [place], [id number] Glomerular filtration rate ( GFR) estimation/1.73 sq m using serum, plasma, or whole bOrdered By: Jame Anglin on 02-15-2025 GFR/1.73 sq M.predicted among non-blacks MDRD (S/P/Bld) [Vol rate/Area] 102 mL/min/{1.73_m2} >60 [facility] Comment on above: mL/min/1.73m2 CKD-EP I Creatinine Equation (2020) Hemoglobin A1con 02-15-2025 HbA1c (Bld) [Mass fraction] 5.7 % Normal <=5.6 [facility] Comment on above: Order Comment: Order Date: 11/22/24Order Info: [id number] - A1C Result Comment: Norm al < 5.7 % Prediabetic 5.7 - 6.4 % Diabetic >or= 6.5 % Please note range changes. Performed By: #### L 501.9985, L506.1001, L501.2450, L500.4050, L500.4100 #### [facility] [address] [place], [address] Hemoglobin A1c percentageOrd ered By: Jame Anglin on 02-15-2025 HbA1c (Bld) [Mass fraction] 5.7 % <5.7 [facility] Comment on above: Normal < 5.7 % Predi abetic 5.7 - 6.4 % Diabetic >or= 6.5 % Please note range changes. Laboratory - Chemistry and C hemistry - challengeOrdered By: Jame Anglin on 02-15-2025 AST [Catalytic activity/Vol] 21 U/L <38 [facility] Microalb:Creat Ratio,Random URon 02-15-2025 Creatinine [Mass/Vol] 243.00 mg/dL Normal 39.00-259.00 [facility] Comment on above: Order Comment: Order Date: 11/22/24Order Info: [id number] - MIACREOrder Info: [id number] - MIALB Performed By: #### L 501.9985, L506.1001, L501.2450, L500.4050, L500.4100 #### [facility] [address] [place], [address] MALB:CREAT 62.1 mg/g CRE Normal [facility] Comment on above: Order Comment: Order Date: 11/22/24Order Info: [id number] - MIACREOrder Info: [id number] - MIALB Performed By: #### L 501.9985, L506.1001, L501.2450, L500.4050, L500.4100 #### [facility] [address] [place], [address] MICROALBUMIN,UR 151.0 mg/L Normal NO RANGE EST. [facility] Comment on above: Order Comment: Order Date: 11/22/24Order Info: [id number] - MIACREOrder Info: [id number] - MIALB Performed By: #### L 501.9985, L506.1001, L501.2450, L500.4050, L500.4100 #### [facility] [address] [place], [address] PTHINon 02-15-2025 PTH 64 pg/mL High 11-61 [facility] Comment on above: Order Comment: Order Date: 11/22/24Order Info: [id number] - PTHIN Result Comment: Hemo lysis present, Results??could be affected. ?? Performed By: #### L 501.9985, L506.1001, L501.2450, L500.4050, L500.4100 #### [facility] [address] [place], [address] Potassium measurement (mass/ volume)Ordered By: Jame Anglin on 02-15-2025 Potassium (Unsp spec) [Mass/Vol] 4.3 mmol/L 3.3-5.1 [facility] Random urine creatinine bryan urement (mass/volume)Ordered By: Jame Anglin on 02-15-2025 Creatinine Unsp time (U) [Mass/Vol] 243.00 mg/dL 39.00-259.00 [facility] Serum creatinine measurement (mass/volume)Ordered By: Jame Anglin on 02-15-2025 Creatinine [Mass/Vol] 0.90 mg/dL 0.70-1.20 [facility] Serum globulin measurementOr dered By: Jame Anglin on 02-15-2025 Globulin (S) [Mass/Vol] 2.4 g/dL 2.2-4.2 [facility] Serum glucose measurement (m ass/volume)Ordered By: Jame Anglin on 02-15-2025 Glucose [Mass/Vol] 138 mg/dL High 70-99 [facility] Serum or plasma alanine clemons otransferase (ALT) measurementOrdered By: Jame Anglin on 02-15-2025 ALT [Catalytic activity/Vol] 13 U/L <47 [facility] Serum or plasma albumin bryan urement (mass/volume)Ordered By: Jame Anglin on 02-15-2025 Albumin [Mass/Vol] 4.3 g/dL 3.5-5.0 [facility] Serum or plasma albumin/glob ulin mass ratioOrdered By: Jame Anglin on 02-15-2025 Albumin/Globulin [Mass ratio] 1.8 {ratio} 0.9-2.4 [facility] Serum or plasma alkaline romain sphatase measurementOrdered By: Jame Anglin on 02-15-2025 ALP [Catalytic activity/Vol] 127 U/L 40-129 [facility] Serum or plasma calcium bryan urement (mass/volume)Ordered By: Jame Anglin on 02-15-2025 Calcium [Mass/Vol] 10.4 mg/dL 7.6-11.0 [facility] Serum or plasma urea nitroge n measurement (mass/volume)Ordered By: Jame Anglin on 02-15-2025 Urea nitrogen [Mass/Vol] 21 mg/dL High 4-19 [facility] Sodium levelOrdered By: Jame Anglin on 02-15-2025 Sodium [Moles/Vol] 138 mmol/L 133-145 [facility] Total proteinOrdered By: Chapis Anglin on 02-15-2025 Protein [Mass/Vol] 6.7 g/dL 5.9-8.4 [facility] Urine albumin measurement [facility] detection limit of 20 mg/L or less (mass/volume)Ordered By: Jame Anglin on 02-15-2025 Albumin DL <= 20 mg/L (U) [Mass/Vol] 151.0 mg/L NO RANGE EST. [facility] Vitamin D,25 Hydroxyon 02-15 Vitamin D 25-OH 28.7 ng/mL Low 30-100 [facility] Comment on above: Order Comment: Order Date: 11/22/24Order Info: [id number] - CMP Result Comment: Jagruti min D Status Deficiency: <20 ng/mL (50nmol/L) Insufficiency: 20-30 ng/mL (50-75 nmol/L) Sufficiency: 30-100 ng/mL (75-250 nmol/L) Toxicity: >100 ng/mL (>250 nmol/L) Performed By: #### L 501.9985, L506.1001, L501.2450, L500.4050, L500.4100 #### [facility] [address] [place], [place], [id number] Microalb:Creat Ratio,Random URon 02-10-2025 MALB:CREAT 97.6 mg/g CRE Normal [facility] Comment on above: Order Comment: Order Date: 08/19/24 Order Info: [id number] - MIACRE Result Comment: AMENDED REPORT 02/10/25 0802 MALB:CREAT previously reported as: 976.4 mg/g CRE Performed By: #### L 100.0100, L501.9520, L501.9985, L500.4050, L502.0250, L509.1000 #### [facility] [address] [place], [address] Absolute lymphocyte countOrd ered By: Jame Anglin on 11-16-2024 Lymphocytes Auto (Unsp spec) [#/Vol] 2.15 10*3/uL 0.83-4.51 [facility] Absolute neutrophil countOrd ered By: Jame Anglin on 11-16-2024 Neutrophils (Bld) [#/Vol] 4.1 10*3/uL 2.0-7.7 [facility] Albumin DL <= 20 mg/L (U) [M ass/Vol]Ordered By: Jame Anglin on 11-16-2024 Urine Random Microalbumin 207.0 mg/L NO RANGE E [facility] Anion gap in Serum or Plasma Ordered By: Jame Anglin on 11-16-2024 Anion gap [Moles/Vol] 10 mmol/L 5- [facility] Automated lymphocyte count a s percentage of total leukocytesOrdered By: Jame Anglin on 11-16-2024 Lymphocytes/100 WBC Auto (Unsp spec) 31.3 % - [facility] BUN/creatinine ratioOrdered By: Jame Anglin on 11-16-2024 Urea nitrogen/Creatinine [Mass ratio] 19.5 mg/mg 10- [facility] Basophil percentageOrdered B y: Jame Anglin on 11-16-2024 Basophils/100 WBC (Bld) 1.5 % High 0-1 [facility] Bilirubin, totalOrdered By: Jame Anglin on 11-16-2024 Bilirubin [Mass/Vol] 0.50 mg/dL 0.00-1.30 [facility] CBC W/Diff, Automatedon 10-24 Absolute Lymph 2.15 X10 3/uL Normal 0.83-4.51 [facility] Comment on above: Order Comment: Order Date: 08/19/24 Order Info: 0184-1 - CBCD Performed By: #### L 100.0100, L501.9520, L501.9985, L500.4050, L502.0250, L509.1000 #### [facility] [address] [place] [address], [address] Absolute Neut 4.1 X10 3/uL Normal 2.0-7.7 [facility] Comment on above: Order Comment: Order Date: 08/19/24 Order Info: 0184-1 - CBCD Performed By: #### L 100.0100, L501.9520, L501.9985, L500.4050, L502.0250, L509.1000 #### [facility] [address] [place], [address] Basophils/100 WBC (Bld) 1.5 % High 0-1 [facility] Comment on above: Order Comment: Order Date: 08/19/24 Order Info: 018- - CBCD Performed By: #### L 100.0100, L501.9520, L501.9985, L500.4050, L502.0250, L509.1000 #### [facility] [address] [place], [address] Eosinophils/100 WBC (Bld) 0.6 % Normal 0-5 [facility] Comment on above: Order Comment: Order Date: 08/19/24 Order Info: 018- - CBCD Performed By: #### L 100.0100, L501.9520, L501.9985, L500.4050, L502.0250, L509.1000 #### [facility] [address] [place], [address] Erythrocyte distribution width (RBC) [Ratio] 11.8 % Normal 11.6-14.6 [facility] Comment on above: Order Comment: Order Date: 08/19/24 Order Info: 018- - CBCD Performed By: #### L 100.0100, L501.9520, L501.9985, L500.4050, L502.0250, L509.1000 #### [facility] [address] [place], [address] Hematocrit (Bld) [Volume fraction] 42.2 % Normal 40-54 [facility] Comment on above: Order Comment: Order Date: 08/19/24 Order Info: 018- - CBCD Performed By: #### L 100.0100, L501.9520, L501.9985, L500.4050, L502.0250, L509.1000 #### [facility] [address] [place], [address] Hemoglobin (Bld) [Mass/Vol] 14.0 g/dL Normal 13.0-16.5 [facility] Comment on above: Order Comment: Order Date: 08/19/24 Order Info: [id number] - CBCD Performed By: #### L 100.0100, L501.9520, L501.9985, L500.4050, L502.0250, L509.1000 #### [facility] [address] [place], [address] IG% 0.300 Normal 0.0-0.9 [facility] Comment on above: Order Comment: Order Date: 08/19/24 Order Info: [id number] - CBCD Result Comment: IG% - Immature Granulocytes (promyelocytes, myelocytes and metamyelocytes) > 1% indicates that a LEFT SHIFT is Present. Performed By: #### L 100.0100, L501.9520, L501.9985, L500.4050, L502.0250, L509.1000 #### [facility] [address] [place], [address] Lymphocytes/100 WBC (Bld) 31.3 % Normal 19-41 [facility] Comment on above: Order Comment: Order Date: 08/19/24 Order Info: 01811-23 - CBCD Performed By: #### L 100.0100, L501.9520, L501.9985, L500.4050, L502.0250, L509.1000 #### [facility] [address] [place], [address] MCH (RBC) [Entitic mass] 30.0 pg Normal 27.0-32.0 [facility] Comment on above: Order Comment: Order Date: 08/19/24 Order Info: 0184- - CBCD Performed By: #### L 100.0100, L501.9520, L501.9985, L500.4050, L502.0250, L509.1000 #### [facility] [address] [place], [address] MCHC (RBC) [Mass/Vol] 33.2 g/dL Normal 32-36 [facility] Comment on above: Order Comment: Order Date: 08/19/24 Order Info: 018-1 - CBCD Performed By: #### L 100.0100, L501.9520, L501.9985, L500.4050, L502.0250, L509.1000 #### [facility] [address] [place], [address] MCV (RBC) [Entitic vol] 90.6 fL Normal 80-94 [facility] Comment on above: Order Comment: Order Date: 08/19/24 Order Info: 018- - CBCD Performed By: #### L 100.0100, L501.9520, L501.9985, L500.4050, L502.0250, L509.1000 #### [facility] [address] [place], [address] Monocytes/100 WBC (Bld) 7.1 % Normal 0-10 [facility] Comment on above: Order Comment: Order Date: 08/19/24 Order Info: 018- - CBCD Performed By: #### L 100.0100, L501.9520, L501.9985, L500.4050, L502.0250, L509.1000 #### [facility] [address] [place], [address] Neutrophils/100 WBC (Bld) 59.2 % Normal 47-70 [facility] Comment on above: Order Comment: Order Date: 08/19/24 Order Info: 018-1 - CBCD Performed By: #### L 100.0100, L501.9520, L501.9985, L500.4050, L502.0250, L509.1000 #### [facility] [address] [place], [address] Nucleated RBC (Bld) [#/Vol] 0 10*3/uL Normal 0-5 [facility] Comment on above: Order Comment: Order Date: 08/19/24 Order Info: 0184-1 - CBCD Performed By: #### L 100.0100, L501.9520, L501.9985, L500.4050, L502.0250, L509.1000 #### [facility] [address] [place], [address] Platelet mean volume (Bld) [Entitic vol] 10.0 fL Normal 6.2-12.0 [facility] Comment on above: Order Comment: Order Date: 08/19/24 Order Info: 0184-1 - CBCD Performed By: #### L 100.0100, L501.9520, L501.9985, L500.4050, L502.0250, L509.1000 #### [facility] [address] [place], [address] Platelets (Bld) [#/Vol] 304 10*3/uL Normal 150-450 [facility] Comment on above: Order Comment: Order Date: 08/19/24 Order Info: 0184-1 - CBCD Performed By: #### L 100.0100, L501.9520, L501.9985, L500.4050, L502.0250, L509.1000 #### [facility] [address] [place], [address] RBC (Bld) [#/Vol] 4.66 10*6/uL Normal 4.6-6.2 [facility] Comment on above: Order Comment: Order Date: 08/19/24 Order Info: 0184-1 - CBCD Performed By: #### L 100.0100, L501.9520, L501.9985, L500.4050, L502.0250, L509.1000 #### [facility] [address] [place], [address] RDW SD 38.5 fl Normal 35.1-43.9 [facility] Comment on above: Order Comment: Order Date: 08/19/24 Order Info: 0184-1 - CBCD Performed By: #### L 100.0100, L501.9520, L501.9985, L500.4050, L502.0250, L509.1000 #### [facility] [address] [place], [address] WBC (Bld) [#/Vol] 6.9 10*3/uL Normal 4.4-11.0 [facility] Comment on above: Order Comment: Order Date: 08/19/24 Order Info: 0184-1 - CBCD Performed By: #### L 100.0100, L501.9520, L501.9985, L500.4050, L502.0250, L509.1000 #### [facility] [address] [place], [address] Carbon dioxide, total [Moles /volume] in Central venous bloodOrdered By: Jame Anglin on 11-16-2024 CO2 [Moles/Vol] 24.4 mmol/L 21.0-32.0 [facility] Chloride assayOrdered By: Rodercik Anglin on 11-16-2024 Chloride [Moles/Vol] 105 mmol/L 98-108 [facility] Comprehensive Metabolic Prof ilon 11-16-2024 Albumin [Mass/Vol] 4.4 g/dL Normal 3.5-5.0 [facility] Comment on above: Order Comment: Order Date: 08/19/24 Order Info: 0786-1 - CMP Order Info: 3016-3 - TSH Performed By: #### L 100.0100, L501.9520, L501.9985, L500.4050, L502.0250, L509.1000 #### [facility] [address] [place], [address] Albumin/Globulin [Mass ratio] 1.6 {ratio} Normal 0.9-2.4 [facility] Comment on above: Order Comment: Order Date: 08/19/24 Order Info: 0786-1 - CMP Order Info: 3 - TSH Performed By: #### L 100.0100, L501.9520, L501.9985, L500.4050, L502.0250, L509.1000 #### [facility] [address] [place], [address] ALK PHOS 138 U/L High 40-129 [facility] Comment on above: Order Comment: Order Date: 08/19/24 Order Info: 0786-1 - CMP Order Info: 3015-10 - TSH Performed By: #### L 100.0100, L501.9520, L501.9985, L500.4050, L502.0250, L509.1000 #### [facility] [address] [place], [address] ALT [Catalytic activity/Vol] 15 U/L Normal <=46 [facility] Comment on above: Order Comment: Order Date: 08/19/24 Order Info: 0786- - CMP Order Info: 3015-10 - TSH Performed By: #### L 100.0100, L501.9520, L501.9985, L500.4050, L502.0250, L509.1000 #### [facility] [address] [place], [address] AST [Catalytic activity/Vol] 26 U/L Normal <=37 [facility] Comment on above: Order Comment: Order Date: 08/19/24 Order Info: 0786-1 - CMP Order Info: 3015-10 - TSH Performed By: #### L 100.0100, L501.9520, L501.9985, L500.4050, L502.0250, L509.1000 #### [facility] [address] [place], [address] Bilirubin [Mass/Vol] 0.50 mg/dL Normal 0.00-1.30 [facility] Comment on above: Order Comment: Order Date: 08/19/24 Order Info: 0786-1 - CMP Order Info: 3 - TSH Performed By: #### L 100.0100, L501.9520, L501.9985, L500.4050, L502.0250, L509.1000 #### [facility] [address] [place], [address] BUN/CRE 19.5 RATIO Normal 10-20 [facility] Comment on above: Order Comment: Order Date: 08/19/24 Order Info: 0786- - CMP Order Info: 3 - TSH Performed By: #### L 100.0100, L501.9520, L501.9985, L500.4050, L502.0250, L509.1000 #### [facility] [address] [place], [address] Calcium [Mass/Vol] 11.0 mg/dL Normal 7.6-11.0 [facility] Comment on above: Order Comment: Order Date: 08/19/24 Order Info: 0786-1 - CMP Order Info: 3015-10 - TSH Performed By: #### L 100.0100, L501.9520, L501.9985, L500.4050, L502.0250, L509.1000 #### [facility] [address] [place], [address] Chloride [Moles/Vol] 105 mmol/L Normal 98-108 [facility] Comment on above: Order Comment: Order Date: 08/19/24 Order Info: 0786-1 - CMP Order Info: 3 - TSH Performed By: #### L 100.0100, L501.9520, L501.9985, L500.4050, L502.0250, L509.1000 #### [facility] [address] [place], [address] CO2 [Moles/Vol] 24.4 mmol/L Normal 21.0-32.0 [facility] Comment on above: Order Comment: Order Date: 08/19/24 Order Info: 0786 - CMP Order Info: 3015-10 - TSH Performed By: #### L 100.0100, L501.9520, L501.9985, L500.4050, L502.0250, L509.1000 #### [facility] [address] [place], [address] Creatinine [Mass/Vol] 0.89 mg/dL Normal 0.70-1.20 [facility] Comment on above: Order Comment: Order Date: 08/19/24 Order Info: 785-08 - CMP Order Info: 3015-10 - TSH Performed By: #### L 100.0100, L501.9520, L501.9985, L500.4050, L502.0250, L509.1000 #### [facility] [address] [place], [address] GAP 10 Normal 5-15 [facility] Comment on above: Order Comment: Order Date: 08/19/24 Order Info: 86 - [facility] Order Info: 3015-10 - TSH Performed By: #### L 100.0100, L501.9520, L501.9985, L500.4050, L502.0250, L509.1000 #### [facility] [address] [place], [address] GFR/1.73 sq M.predicted among non-blacks MDRD (S/P/Bld) [Vol rate/Area] 102 mL/min/{1.73_m2} Normal >60 [facility] Comment on above: Order Comment: Order Date: 08/19/24 Order Info: 0786 - CMP Order Info: 3015-10 - TSH Result Comment: mL/m in/1.73m2 CKD-EPI Creatinine Equation (2020) Performed By: #### L 100.0100, L501.9520, L501.9985, L500.4050, L502.0250, L509.1000 #### [facility] [address] [place], [address] Globulin (S) [Mass/Vol] 2.7 g/dL Normal 2.2-4.2 [facility] Comment on above: Order Comment: Order Date: 08/19/24 Order Info: 0786 - CMP Order Info: 3015-10 - TSH Performed By: #### L 100.0100, L501.9520, L501.9985, L500.4050, L502.0250, L509.1000 #### [facility] [address] [place], [address] Glucose [Mass/Vol] 137 mg/dL High 70-99 [facility] Comment on above: Order Comment: Order Date: 08/19/24 Order Info: 07 - CMP Order Info: 3015-10 - TSH Performed By: #### L 100.0100, L501.9520, L501.9985, L500.4050, L502.0250, L509.1000 #### [facility] [address] [place], [address] Potassium [Moles/Vol] 4.8 mmol/L Normal 3.3-5.1 [facility] Comment on above: Order Comment: Order Date: 08/19/24 Order Info: 0786 - CMP Order Info: 3015-10 - TSH Performed By: #### L 100.0100, L501.9520, L501.9985, L500.4050, L502.0250, L509.1000 #### [facility] [address] [place], [address] Sodium [Moles/Vol] 139 mmol/L Normal 133-145 [facility] Comment on above: Order Comment: Order Date: 08/19/24 Order Info: 0786- - CMP Order Info: 3015-10 - TSH Performed By: #### L 100.0100, L501.9520, L501.9985, L500.4050, L502.0250, L509.1000 #### [facility] [address] [place], [address] T PROT 7.2 g/dL Normal 5.9-8.4 [facility] Comment on above: Order Comment: Order Date: 08/19/24 Order Info: 0786-1 - CMP Order Info: 3016-3 - TSH Performed By: #### L 100.0100, L501.9520, L501.9985, L500.4050, L502.0250, L509.1000 #### [facility] [address] [place], [address] Urea nitrogen [Mass/Vol] 17 mg/dL Normal 4-19 [facility] Comment on above: Order Comment: Order Date: 08/19/24 Order Info: 0786-1 - CMP Order Info: 3016-3 - TSH Performed By: #### L 100.0100, L501.9520, L501.9985, L500.4050, L502.0250, L509.1000 #### [facility] [address] [place], [address] Creatinine Unsp time (U) [Ma ss/Vol]Ordered By: Jame Anglin on 11-16-2024 Creatinine (U) [Mass/Vol] 212.00 mg/dL 39.00-25 9.00 [facility] Eosinophil percentageOrdered By: Jame Anglin on 11-16-2024 Eosinophils/100 WBC (Bld) 0.6 % 0-5 [facility] Erythrocyte distribution wid th ratioOrdered By: Jame Anglin on 11-16-2024 Erythrocyte distribution width (RBC) [Ratio] 11.8 % 11.6-14.6 [facility] Erythrocyte distribution wid th standard deviationOrdered By: Jame Anglin on 11-16-2024 Erythrocyte distribution width (RBC) [Entitic vol] 38.5 fL 35.1-43.9 [facility] Erythrocyte distribution width (RBC) [Ratio] 38.5 fl 35.1-43.9 [facility] GFR/1.73 sq M.predicted malika g non-blacks MDRD (S/P/Bld) [Vol rate/Area]Ordered By: Jame Anglin on 11-16-2024 Estimated GFR (MDRD) Non-Af Amer 102 >60 [facility] Comment on above: mL/min/1.73m2 CKD-EP I Creatinine Equation (2020) Glomerular filtration rate ( GFR) estimation/1.73 sq m using serum, plasma, or whole bOrdered By: Jame Anlgin on 11-16-2024 GFR/1.73 sq M.predicted among non-blacks MDRD (S/P/Bld) [Vol rate/Area] 102 mL/min/{1.73_m2} >60 [facility] Comment on above: mL/min/1.73m2 CKD-EP I Creatinine Equation (2020) Hematocrit Auto (Bld) [Volum e fraction]Ordered By: Jame Anglin on 11-16-2024 Hematocrit (Bld) [Volume fraction] 42.2 % 40-54 [facility] Hemoglobin A1con 11-16-2024 HbA1c (Bld) [Mass fraction] 5.8 % Normal <=5.6 [facility] Comment on above: Order Comment: Order Date: 08/19/24Order Info: 4548-4 - A1C Performed By: #### L 501.9985, L506.1001, L501.2450, L500.4050, L500.4100 #### [facility] [address] [place], [place], [id number] Hemoglobin A1c percentageOrd ered By: Jame Anglin on 11-16-2024 HbA1c (Bld) [Mass fraction] 5.8 % >5.7 [facility] Hemoglobin measurementOrdere d By: Jame Anglin on 11-16-2024 Hemoglobin (Bld) [Mass/Vol] 14.0 g/dL 13.0-16.5 [facility] Immature granulocytes/100 WB C Auto (Bld)Ordered By: Jame Anglin on 11-16-2024 Immature granulocytes/100 WBC (Bld) 0.300 % 0.0-0.9 [facility] Comment on above: IG% - Immature Granu locytes (promyelocytes, myelocytes and metamyelocytes) > 1% indicates that a LEFT SHIFT is Present. L506.1001on 11-16-2024 Vitamin D 25-OH 22.1 ng/mL Low 30-100 [facility] Comment on above: Order Comment: Order Date: 08/19/24Order Info: 0786-1 - CMPOrder Info: 3016-3 - TSH Result Comment: Jagruti min D Status Deficiency: <20 ng/mL (50nmol/L) Insufficiency: 20-30 ng/mL (50-75 nmol/L) Sufficiency: 30-100 ng/mL (75-250 nmol/L) Toxicity: >100 ng/mL (>250 nmol/L) Performed By: #### L 501.9985, L506.1001, L501.2450, L500.4050, L500.4100 #### [facility] [address] [place], [address] Laboratory - Chemistry and C hemistry - challengeOrdered By: Jame Anglin on 11-16-2024 AST [Catalytic activity/Vol] 26 U/L <38 [facility] Lymphocytes Auto (Unsp spec) [#/Vol]Ordered By: Jame Anglin on 11-16-2024 Lymphocytes (Bld) [#/Vol] 2.15 10*3/uL 0.83-4.5 1 [facility] Lymphocytes/100 WBC Auto (Un sp spec)Ordered By: Jame Anglin on 11-16-2024 Lymphocytes/100 WBC (Bld) 31.3 % 19-41 [facility] MCV (mean corpuscular volume ) determinationOrdered By: Jame Anglin on 11-16-2024 MCV (RBC) [Entitic vol] 90.6 fL 80-94 [facility] Mean corpuscular hemoglobin (MCH) determinationOrdered By: Jame Anglin on 11-16-2024 MCH (RBC) [Entitic mass] 30.0 pg 27.0-32.0 [facility] Mean corpuscular hemoglobin concentration (MCHC) determinationOrdered By: Jame Anglin on 11-16-2024 MCHC (RBC) [Mass/Vol] 33.2 g/dL 32-36 [facility] Mean platelet volume determi nationOrdered By: Jame Anglin on 11-16-2024 Platelet mean volume (Bld) [Entitic vol] 10.0 fL 6.2-12.0 [facility] Microalbumin/creat ratio urO rdered By: Jame Anglin on 11-16-2024 Urine Microalbumin/Creatinine Ratio 976.4 mg/g CRE [facility] Monocyte percentageOrdered B y: Jame Anglin on 11-16-2024 Monocytes/100 WBC (Bld) 7.1 % 0-10 [facility] Neutrophil percentageOrdered By: Jame Anglin on 11-16-2024 Neutrophils/100 WBC (Bld) 59.2 % 47-70 [facility] Nucleated red blood cell per centageOrdered By: Jame Anglin on 11-16-2024 Nucleated RBC/100 WBC (Bld) [Ratio] 0 % 0-5 [facility] PTH intactOrdered By: Jame seth on 11-16-2024 Parathyroid Hormone (Intact) 72 pg/mL High [facility] PTHINon 11-16-2024 PTH 72 pg/mL High [facility] Comment on above: Order Comment: Order Date: 08/19/24 Order Info: 0565-1 - PTHIN Performed By: #### L 100.0100, L501.9520, L501.9985, L500.4050, L502.0250, L509.1000 #### [facility] [address] [place], [address] Platelet countOrdered By: Roderick Anglin on 11-16-2024 Platelets (Bld) [#/Vol] 304 10*3/uL 150-450 [facility] Potassium (Unsp spec) [Mass/ Vol]Ordered By: Jame Anglin on 11-16-2024 Potassium [Moles/Vol] 4.8 mmol/L 3.3-5.1 [facility] Potassium measurement (mass/ volume)Ordered By: Jame Anglin on 11-16-2024 Potassium (Unsp spec) [Mass/Vol] 4.8 mmol/L 3.3-5.1 [facility] RBC Auto (Bld) [#/Vol]Ordere d By: Jame Anglin on 11-16-2024 RBC (Bld) [#/Vol] 4.66 10*6/uL 4.6-6.2 [facility] Random urine creatinine bryan urement (mass/volume)Ordered By: Jame Anglin on 11-16-2024 Creatinine Unsp time (U) [Mass/Vol] 212.00 mg/dL 39.00-259.00 [facility] Serum creatinine measurement (mass/volume)Ordered By: Jame Anglin on 11-16-2024 Creatinine [Mass/Vol] 0.89 mg/dL 0.70-1.20 [facility] Serum globulin measurementOr dered By: Jame Anglin on 11-16-2024 Globulin (S) [Mass/Vol] 2.7 g/dL 2.2-4.2 [facility] Serum glucose measurement (m ass/volume)Ordered By: Jame Anglin on 11-16-2024 Glucose [Mass/Vol] 137 mg/dL High 70-99 [facility] Serum or plasma alanine clemons otransferase (ALT) measurementOrdered By: Jame Anglin on 11-16-2024 ALT [Catalytic activity/Vol] 15 U/L <47 [facility] Serum or plasma albumin bryan urement (mass/volume)Ordered By: Jame Anglin on 11-16-2024 Albumin [Mass/Vol] 4.4 g/dL 3.5-5.0 [facility] Serum or plasma albumin/glob ulin mass ratioOrdered By: Jame Anglin on 11-16-2024 Albumin/Globulin [Mass ratio] 1.6 {ratio} 0.9-2.4 [facility] Serum or plasma alkaline romain sphatase measurementOrdered By: Jame Anglin on 11-16-2024 ALP [Catalytic activity/Vol] 138 U/L High 40-129 [facility] Serum or plasma calcium bryan urement (mass/volume)Ordered By: Jame Anglin on 11-16-2024 Calcium [Mass/Vol] 11.0 mg/dL 7.6-11.0 [facility] Serum or plasma urea nitroge n measurement (mass/volume)Ordered By: Jame Anglin on 11-16-2024 Urea nitrogen [Mass/Vol] 17 mg/dL 4-19 [facility] Sodium levelOrdered By: Jame Anglin on 11-16-2024 Sodium [Moles/Vol] 139 mmol/L 133-145 [facility] TSH DL <= 0.005 mIU/L QnOrde red By: Jame Anglin on 11-16-2024 Thyroid Stimulating Hormone (TSH) 2.860 uIU/mL 0.300-4.200 [facility] TSH Qn 2.860 uIU/mL 0.300-4.200 [facility] Thyroid Stim Hormone (TSH)on 11-16-2024 TSH 2.860 uIU/mL Normal 0.300-4.200 [facility] Comment on above: Order Comment: Order Date: 08/19/24 Order Info: 0786-1 - CMP Order Info: 3016-3 - TSH Performed By: #### L 100.0100, L501.9520, L501.9985, L500.4050, L502.0250, L509.1000 #### [facility] [address] [place], [address] Total proteinOrdered By: Chapis Anglin on 11-16-2024 Protein [Mass/Vol] 7.2 g/dL 5.9-8.4 [facility] Urine albumin measurement [facility] detection limit of 20 mg/L or less (mass/volume)Ordered By: Jame Anglin on 11-16-2024 Albumin DL <= 20 mg/L (U) [Mass/Vol] 207.0 mg/L NO RANGE EST. [facility] Vitamin D, 25-hydroxyOrdered By: Jame Anglin on 11-16-2024 Vitamin D 25-Hydroxy 22.1 ng/mL Low 30-100 [facility] Comment on above: Vitamin D StatusDefi ciency: <20 ng/mL (50nmol/L)Insufficiency: 20-30 ng/mL (50-75 nmol/L)Sufficiency: 30-100 ng/mL (75-250 nmol/L)Toxicity: >100 ng/mL (>250 nmol/L) White blood cell (WBC) count Ordered By: Jame Anglin on 11-16-2024 WBC (Bld) [#/Vol] 6.9 10*3/uL 4.4-11.0 [facility] HIP, UNI W/ Pelvis 2-3 Views on 08-19-2024 HIP, UNI W/ Pelvis 2-3 Views [facility] [address] [place], [place] [address] HIP, UNI W/ Pelvis 2-3 Views MR#: [id number] Acct: [id number] Name: LALA GA Rep #: [id number] : 1970 M 54 From: Kelsy Javed MD PCP: Dr. Jame Anglin MD Status: REG CL Study: HIP, UNI W/ Pelvis 2-3 Views Date of Exam: Exam# [id number] Ordering Dr: Jame Anglin MD -[id number] INDICATION: pain anterior hip with rotation and hip flexion, also ROM decreased EXAMINATION/TECHNIQ UE: X-RAY - XR Hip Unilateral with Pelvis when performed; 2-3 Views COMPARISON: Prior study dated: CT of the abdomen and pelvis dated February 21, 2009 FINDINGS: There are degenerative changes of the visualized lower lumbar spine. PELVIC BONES: No displaced fracture, destructive or sclerotic lesions. Note that overlapping bowel shadows may however obscure fine detail. Sacroiliac joints are unremarkable. No widening of the pubic symphysis. HIPS: There are degenerative changes of the hips characterized by joint space narrowing and subchondral sclerosis. SOFT TISSUES: No soft tissue swelling or gas. RAD/HIP, UNI W/ Pelvis 2-3 Views IMPRESSION: Degenerative changes of the hips. Electronically Signed: Kelsy Javed MD at 9:25 EST , CC: Dr. Jame Anglin MD Lead Relay Tester: Signed Normal [facility] Albumin to globulin ratioOrd ered By: Jame Anglin on 08-16-2024 Albumin/Globulin [Mass ratio] 1.3 {ratio} 0.9-2.4 [facility] Bilirubin, totalOrdered By: Jame Anglin on 08-16-2024 Bilirubin [Mass/Vol] 0.40 mg/dL 0.20-1.00 [facility] Comment on above: For patients on eltr ombopag therapy, use of Dimension [place] TBIL is not recommended. Blood urea nitrogen (BUN)/cr eatinine ratioOrdered By: Jame Anglin on 08-16-2024 Urea nitrogen/Creatinine [Mass ratio] 13.9 mg/mg 10-20 [facility] Carbon dioxide measurementOr dered By: Jame Anglin on 08-16-2024 CO2 [Moles/Vol] 29.0 mmol/L 21.0-32.0 [facility] Chloride measurementOrdered By: Jame Anglin on 08-16-2024 Chloride [Moles/Vol] 108 mmol/L High 98-107 [facility] Comprehensive Metabolic Prof ilon 08-16-2024 Albumin [Mass/Vol] 3.9 g/dL Normal 3.2-5.0 [facility] Comment on above: Order Comment: Order Date: 05/24/24Order Info: 0786-1 - CMP Performed By: #### L 501.9985, L506.1001, L501.2450, L500.4050, L500.4100 #### [facility] [address] [place], [address] Albumin/Globulin [Mass ratio] 1.3 {ratio} Normal 0.9-2.4 [facility] Comment on above: Order Comment: Order Date: 05/24/24Order Info: 0786-1 - CMP Performed By: #### L 501.9985, L506.1001, L501.2450, L500.4050, L500.4100 #### [facility] [address] [place], [address] ALK P 166 U/L High 45-117 [facility] Comment on above: Order Comment: Order Date: 05/24/24Order Info: 0786-1 - CMP Performed By: #### L 501.9985, L506.1001, L501.2450, L500.4050, L500.4100 #### [facility] [address] [place], [address] ALT [Catalytic activity/Vol] 28 U/L Normal 16-61 [facility] Comment on above: Order Comment: Order Date: 05/24/24Order Info: 0786-1 - CMP Performed By: #### L 501.9985, L506.1001, L501.2450, L500.4050, L500.4100 #### [facility] [address] [place], [address] AST [Catalytic activity/Vol] 21 U/L Normal 15-37 [facility] Comment on above: Order Comment: Order Date: 05/24/24Order Info: 0786-1 - CMP Performed By: #### L 501.9985, L506.1001, L501.2450, L500.4050, L500.4100 #### [facility] [address] [place], [address] Bilirubin [Mass/Vol] 0.40 mg/dL Normal 0.20-1.00 [facility] Comment on above: Order Comment: Order Date: 05/24/24Order Info: 0786-1 - CMP Result Comment: For patients on eltrombopag therapy, use of Dimension [place] TBIL is not recommended. Performed By: #### L 501.9985, L506.1001, L501.2450, L500.4050, L500.4100 #### [facility] [address] [place], [address] BUN/CRE 13.9 RATIO Normal 10-20 [facility] Comment on above: Order Comment: Order Date: 05/24/24Order Info: 0786-1 - CMP Performed By: #### L 501.9985, L506.1001, L501.2450, L500.4050, L500.4100 #### [facility] [address] [place], [address] CA,Total 10.6 mg/dL High 8.5-10.1 [facility] Comment on above: Order Comment: Order Date: 05/24/24Order Info: 0786- - CMP Performed By: #### L 501.9985, L506.1001, L501.2450, L500.4050, L500.4100 #### [facility] [address] [place], [address] Chloride [Moles/Vol] 108 mmol/L High 98-107 [facility] Comment on above: Order Comment: Order Date: 05/24/24Order Info: 07 - CMP Performed By: #### L 501.9985, L506.1001, L501.2450, L500.4050, L500.4100 #### [facility] [address] [place], [address] CO2 [Moles/Vol] 29.0 mmol/L Normal 21.0-32.0 [facility] Comment on above: Order Comment: Order Date: 05/24/24Order Info: 0786 - CMP Performed By: #### L 501.9985, L506.1001, L501.2450, L500.4050, L500.4100 #### [facility] [address] [place], [address] Creatinine [Mass/Vol] 1.15 mg/dL Normal 0.70-1.30 [facility] Comment on above: Order Comment: Order Date: 05/24/24Order Info: 07- - CMP Result Comment: The validity of the calculated GFR GFRAA in patients over 70 years has not been determined. Clinical correlation is essential. Performed By: #### L 501.9985, L506.1001, L501.2450, L500.4050, L500.4100 #### [facility] [address] [place], [address] EST GFR - AA 85 mL/min Normal >60 [facility] Comment on above: Order Comment: Order Date: 05/24/24Order Info: 0786-1 - CMP Result Comment: Afri can Chinese GFR Calc Performed By: #### L 501.9985, L506.1001, L501.2450, L500.4050, L500.4100 #### [facility] [address] [place], [address] GAP 3 Low 5-15 [facility] Comment on above: Order Comment: Order Date: 05/24/24Order Info: 0786-1 - CMP Performed By: #### L 501.9985, L506.1001, L501.2450, L500.4050, L500.4100 #### [facility] [address] [place], [address] GFR/1.73 sq M.predicted among non-blacks MDRD (S/P/Bld) [Vol rate/Area] 70 mL/min/{1.73_m2} Normal >60 [facility] Comment on above: Order Comment: Order Date: 05/24/24Order Info: 0786-1 - CMP Result Comment: Non- GFR Calc Performed By: #### L 501.9985, L506.1001, L501.2450, L500.4050, L500.4100 #### [facility] [address] [place], [address] Globulin (S) [Mass/Vol] 3.0 g/dL Normal 2.2-4.2 [facility] Comment on above: Order Comment: Order Date: 05/24/24Order Info: 0786-1 - CMP Performed By: #### L 501.9985, L506.1001, L501.2450, L500.4050, L500.4100 #### [facility] [address] [place], [address] Glucose [Mass/Vol] 128 mg/dL High 74-106 [facility] Comment on above: Order Comment: Order Date: 05/24/24Order Info: 0786-1 - CMP Result Comment: Fast ing Glucose result greater than or equal to 126 mg/dL suggests DIABETES MELLITUS per A.D.A. criteria. Performed By: #### L 501.9985, L506.1001, L501.2450, L500.4050, L500.4100 #### [facility] [address] [place], [address] Potassium [Moles/Vol] 4.0 mmol/L Normal 3.5-5.1 [facility] Comment on above: Order Comment: Order Date: 05/24/24Order Info: 0786-1 - CMP Performed By: #### L 501.9985, L506.1001, L501.2450, L500.4050, L500.4100 #### [facility] [address] [place], [address] Sodium [Moles/Vol] 140 mmol/L Normal 136-145 [facility] Comment on above: Order Comment: Order Date: 05/24/24Order Info: 0786-1 - CMP Performed By: #### L 501.9985, L506.1001, L501.2450, L500.4050, L500.4100 #### [facility] [address] [place], [address] T PROT 6.9 g/dL Normal 6.4-8.2 [facility] Comment on above: Order Comment: Order Date: 05/24/24Order Info: 0786-1 - CMP Performed By: #### L 501.9985, L506.1001, L501.2450, L500.4050, L500.4100 #### [facility] [address] [place], [address] Urea nitrogen [Mass/Vol] 16 mg/dL Normal 7-18 [facility] Comment on above: Order Comment: Order Date: 05/24/24Order Info: 0786-1 - CMP Performed By: #### L 501.9985, L506.1001, L501.2450, L500.4050, L500.4100 #### [facility] [address] [place], [place], [id number] Estimated glomerular filtrat ion rate (GFR) AmericanOrdered By: Jame Anglin on 08-16-2024 Estimated GFR (MDRD) Amer 85 mL/min >60 [facility] Comment on above: GFR Calc Glomerular filtration rate ( GFR) estimationOrdered By: Jame Anglin on 08-16-2024 Estimated GFR (MDRD) Non-Af Amer 70 mL/min >60 [facility] Comment on above: Non- GFR Calc Glucose measurementOrdered B y: Jame Anglin on 08-16-2024 Glucose [Mass/Vol] 128 mg/dL High 74-106 [facility] Comment on above: Fasting Glucose resu lt greater than or equal to 126 mg/dL suggests DIABETES MELLITUS per A.D.A. criteria. Hemoglobin A1con 08-16-2024 HbA1c (Bld) [Mass fraction] 5.4 % Normal 3.8-5.6 [facility] Comment on above: Order Comment: Order Date: 05/24/24Order Info: 4548-4 - A1C Result Comment: Norm al < 5.7 % Prediabetic 5.7 - 6.4 % Diabetic >or= 6.5 % Please note range changes. Performed By: #### L 501.9985, L506.1001, L501.2450, L500.4050, L500.4100 #### [facility] [address] [place], [place], [address] Hemoglobin A1c percentageOrd ered By: Jame Anglin on 08-16-2024 HbA1c (Bld) [Mass fraction] 5.4 % 3.8-5.6 [facility] Comment on above: Normal < 5.7 % Predi abetic 5.7 - 6.4 % Diabetic >or= 6.5 % Please note range changes. Intact parathyroid hormone ( iPTH) measurementOrdered By: Jame Anglin on 08-16-2024 Parathyroid Hormone (Intact) 104.7 pg/mL High 18.4-80.1 [facility] Laboratory - Chemistry and C hemistry - challengeOrdered By: Jame Anglin on 08-16-2024 AST [Catalytic activity/Vol] 21 U/L 15-37 [facility] PTHINon 08-16-2024 PTH 104.7 pg/mL High 18.4-80.1 [facility] Comment on above: Order Comment: Order Date: 05/24/24Order Info: 0565-1 - PTHIN Performed By: #### L 501.9985, L506.1001, L501.2450, L500.4050, L500.4100 #### [facility] [address] [place], [address] Potassium measurementOrdered By: Jame Anglin on 08-16-2024 Potassium [Moles/Vol] 4.0 mmol/L 3.5-5.1 [facility] Serum anion gap measurementO rdered By: Jame Anglin on 08-16-2024 Anion gap [Moles/Vol] 3 mmol/L Low 5-15 [facility] Serum globulin measurementOr dered By: Jame Anglin on 08-16-2024 Globulin (S) [Mass/Vol] 3.0 g/dL 2.2-4.2 [facility] Serum or plasma alanine clemons otransferase (ALT) measurementOrdered By: Jame Anglin on 08-16-2024 ALT [Catalytic activity/Vol] 28 U/L 16-61 [facility] Serum or plasma albumin bryan urement (mass/volume)Ordered By: Jame Anglin on 08-16-2024 Albumin [Mass/Vol] 3.9 g/dL 3.2-5.0 [facility] Serum or plasma alkaline romian sphatase measurementOrdered By: Jame Anglin on 08-16-2024 ALP [Catalytic activity/Vol] 166 U/L High 45-117 [facility] Serum or plasma calcium bryan urement (mass/volume)Ordered By: Jame Anglin on 08-16-2024 Calcium [Mass/Vol] 10.6 mg/dL High 8.5-10.1 [facility] Serum or plasma creatinine m easurement (mass/volume)Ordered By: Jame Anglin on 08-16-2024 Creatinine [Mass/Vol] 1.15 mg/dL 0.70-1.30 [facility] Comment on above: The validity of the calculated GFR & GFRAA in patients over 70 years has not been determined. Clinical correlation is essential. Serum or plasma urea nitroge n measurement (mass/volume)Ordered By: Jame Anglin on 08-16-2024 Urea nitrogen [Mass/Vol] 16 mg/dL 7-18 [facility] Sodium levelOrdered By: Jame Anglin on 08-16-2024 Sodium [Moles/Vol] 140 mmol/L 136-145 [facility] Total proteinOrdered By: Chapis Anglin on 08-16-2024 Protein [Mass/Vol] 6.9 g/dL 6.4-8.2 [facility] Absolute lymphocyte countOrd ered By: Jame Anglin on 10-10-2023 Lymphocytes Auto (Unsp spec) [#/Vol] 2.13 10*3/uL 0.83-4.51 [facility] Automated lymphocyte count a s percentage of total leukocytesOrdered By: Jame Anglin on 10-10-2023 Lymphocytes/100 WBC Auto (Unsp spec) 34.8 % 19-41 [facility] Basophil percentageOrdered B y: Jame Anglin on 10-10-2023 Amylase [Catalytic activity/Vol] 24 U/L 25-115 [facility] Basophils/100 WBC (Bld) 1.5 % 0-1 [facility] Bilirubin [Mass/Vol] 0.40 mg/dL 0.20-1.00 [facility] Comment on above: For patients on eltr ombopag therapy, use of Dimension [place] TBIL is not recommended. Chloride [Moles/Vol] 108 mmol/L 98-107 [facility] Eosinophils/100 WBC (Bld) 1.8 % 0-5 [facility] Glucose [Mass/Vol] 312 mg/dL 74-106 [facility] Comment on above: Glucose result great er than or equal to 200 mg/dLsuggests DIABETES MELLITUS per A.D.A. criteria. Hemoglobin (Bld) [Mass/Vol] 14.0 g/dL 13.0-16.5 [facility] Monocytes/100 WBC (Bld) 8.8 % 0-10 [facility] Neutrophils (Bld) [#/Vol] 3.2 10*3/uL 2.0-7.7 [facility] Neutrophils/100 WBC (Bld) 52.3 % 47-70 [facility] Potassium [Moles/Vol] 4.3 mmol/L 3.5-5.1 [facility] Protein [Mass/Vol] 7.3 g/dL 6.4-8.2 [facility] Sodium [Moles/Vol] 138 mmol/L 136-145 [facility] WBC (Bld) [#/Vol] 6.1 10*3/uL 4.4-11.0 [facility] Determination of erythrocyte mean corpuscular volume (MCV)Ordered By: Jame Anglin on 10-10-2023 MCV (RBC) [Entitic vol] 87.7 fL 80-94 [facility] Erythrocyte distribution wid th ratioOrdered By: Jame Anglin on 10-10-2023 Erythrocyte distribution width (RBC) [Ratio] 11.4 % 11.6-14.6 [facility] Erythrocyte distribution wid th standard deviationOrdered By: Jame Anglin on 10-10-2023 Erythrocyte distribution width (RBC) [Entitic vol] 36.8 fL 35.1-43.9 [facility] Hematocrit Auto (Bld) [Volum e fraction]Ordered By: Jame Anglin on 10-10-2023 Hematocrit (Bld) [Volume fraction] 41.3 % 40-54 [facility] Immature granulocytes/100 WB C Auto (Bld)Ordered By: Jame Anglin on 10-10-2023 Immature granulocytes/100 WBC (Bld) 0.800 % 0.0-0.9 [facility] Comment on above: IG% - Immature Granu locytes (promyelocytes, myelocytes and metamyelocytes) > 1% indicates that a LEFT SHIFT is Present. Laboratory - Chemistry and C hemistry - challengeOrdered By: Jame Anglin on 10-10-2023 Albumin/Globulin [Mass ratio] 1.0 {ratio} 0.9-2.4 [facility] ALP [Catalytic activity/Vol] 107 U/L 45-117 [facility] ALT [Catalytic activity/Vol] 25 U/L 16-61 [facility] CO2 [Moles/Vol] 22.0 mmol/L 21.0-32.0 [facility] Globulin (S) [Mass/Vol] 3.6 g/dL 2.2-4.2 [facility] Lipase [Catalytic activity/Vol] 61 U/L 13-75 [facility] Comment on above: Please note:LIPASE r evised reference range effective 22. New Lipase methodology. Expected to produce lower values than the previous assay method. NEW Reference Range: 13 - 75 U/L Urea nitrogen/Creatinine [Mass ratio] 13.7 mg/mg 10-20 [facility] Laboratory - Hematology and Cell countsOrdered By: Jame Anglin on 10-10-2023 MCH (RBC) [Entitic mass] 29.7 pg 27.0-32.0 [facility] MCHC (RBC) [Mass/Vol] 33.9 g/dL 32-36 [facility] Nucleated RBC/100 WBC (Bld) [Ratio] 0 % 0-5 [facility] Platelet mean volume (Bld) [Entitic vol] 9.6 fL 6.2-12.0 [facility] Platelets (Bld) [#/Vol] 286 10*3/uL 150-450 [facility] No Panel InformationOrdered By: Jame Anglin on 10-10-2023 Estimated GFR (MDRD) Amer 107 mL/min >60 [facility] Comment on above: GFR Calc Estimated GFR (MDRD) Non-Af Amer 88 mL/min >60 [facility] Comment on above: Non- GFR Calc Prostate Specific Antigen Screen 0.71 ng/mL 0.00-4.00 [facility] Comment on above: This test was perfor med using the TPSA assay method for the[employer]renStarWhat's in My Handbag chemistry system. Values obtained with differentassay methods cannot be used interchangably.When changing PSA assays in the course of monitoring apatient, additional sequential testing should be carriedout to confirm baseline values. Urine Microalbumin/Creatinine Ratio 310.2 mg/g CRE <30 [facility] RBC Auto (Bld) [#/Vol]Ordere d By: Jame Anglin on 10-10-2023 RBC (Bld) [#/Vol] 4.71 10*6/uL 4.6-6.2 [facility] Serum or plasma calcium bryan urement (mass/volume)Ordered By: Jame Anglin on 10-10-2023 Calcium [Mass/Vol] 9.7 mg/dL 8.5-10.1 [facility] Serum or plasma creatinine m easurement (mass/volume)Ordered By: Jame Anglin on 10-10-2023 Creatinine [Mass/Vol] 0.95 mg/dL 0.70-1.30 [facility] Comment on above: The validity of the calculated GFR & GFRAA in patients over 70 years has not been determined. Clinical correlation is essential. Serum or plasma urea nitroge n measurement (mass/volume)Ordered By: Jame Anglin on 10-10-2023 Urea nitrogen [Mass/Vol] 13 mg/dL 7-18 [facility] Thin prep Papanicolaou smear with manual screeningOrdered By: Jame Anglin on 10-10-2023 Thin prep Papanicolaou smear with manual screening 3.7 g/dL 3.2-5.0 [facility] Thin prep Papanicolaou smear with manual screening 20 U/L 15-37 [facility] Thin prep Papanicolaou smear with manual screening 8 5-15 [facility] Thin prep Papanicolaou smear with manual screening 170.0 mg/L NO RANGE EST. [facility] Urine creatinine measurement (mass/volume)Ordered By: Jame Anglin on 10-10-2023 Creatinine (U) [Mass/Vol] 54.80 mg/dL NO RANGE EST. [facility] Basophil percentageOrdered B y: Jame Anglin on 09-23-2023 Bilirubin [Mass/Vol] 0.50 mg/dL 0.20-1.00 [facility] Comment on above: For patients on eltr ombopag therapy, use of Dimension [place] TBIL is not recommended. Chloride [Moles/Vol] 103 mmol/L 98-107 [facility] Glucose [Mass/Vol] 291 mg/dL 74-106 [facility] Comment on above: Glucose result great er than or equal to 200 mg/dLsuggests DIABETES MELLITUS per A.D.A. criteria. Potassium [Moles/Vol] 4.0 mmol/L 3.5-5.1 [facility] Protein [Mass/Vol] 7.4 g/dL 6.4-8.2 [facility] Sodium [Moles/Vol] 135 mmol/L 136-145 [facility] Laboratory - Chemistry and C hemistry - challengeOrdered By: Jame Anglin on 09-23-2023 Albumin/Globulin [Mass ratio] 1.2 {ratio} 0.9-2.4 [facility] ALP [Catalytic activity/Vol] 98 U/L 45-117 [facility] ALT [Catalytic activity/Vol] 29 U/L 16-61 [facility] CO2 [Moles/Vol] 24.0 mmol/L 21.0-32.0 [facility] Globulin (S) [Mass/Vol] 3.4 g/dL 2.2-4.2 [facility] Lipase [Catalytic activity/Vol] 85 U/L 13-75 [facility] Comment on above: Please note:LIPASE r evised reference range effective 22. New Lipase methodology. Expected to produce lower values than the previous assay method. NEW Reference Range: 13 - 75 U/L Urea nitrogen/Creatinine [Mass ratio] 10.9 mg/mg 10-20 [facility] No Panel InformationOrdered By: Jame Anglin on 09-23-2023 Estimated GFR (MDRD) Amer 99 mL/min >60 [facility] Comment on above: GFR Calc Estimated GFR (MDRD) Non-Af Amer 82 mL/min >60 [facility] Comment on above: Non- GFR Calc Serum or plasma calcium bryan urement (mass/volume)Ordered By: Jame Anglin on 09-23-2023 Calcium [Mass/Vol] 10.2 mg/dL 8.5-10.1 [facility] Serum or plasma creatinine m easurement (mass/volume)Ordered By: Jame Anglin on 09-23-2023 Creatinine [Mass/Vol] 1.01 mg/dL 0.70-1.30 [facility] Comment on above: The validity of the calculated GFR & GFRAA in patients over 70 years has not been determined. Clinical correlation is essential. Serum or plasma urea nitroge n measurement (mass/volume)Ordered By: Jame Anglin on 09-23-2023 Urea nitrogen [Mass/Vol] 11 mg/dL 7-18 [facility] Thin prep Papanicolaou smear with manual screeningOrdered By: Jame Anglin on 09-23-2023 Thin prep Papanicolaou smear with manual screening 4.0 g/dL 3.2-5.0 [facility] Thin prep Papanicolaou smear with manual screening 22 U/L 15-37 [facility] Thin prep Papanicolaou smear with manual screening 8 5-15 [facility] Basophil percentageOrdered B y: Dr. Anglin on 11-19-2022 Bilirubin [Mass/Vol] 0.50 mg/dL 0.20-1.00 [facility] Comment on above: For patients on eltr ombopag therapy, use of Dimension [place] TBIL is not recommended. Chloride [Moles/Vol] 108 mmol/L 98-107 [facility] Cholesterol [Mass/Vol] 205 mg/dL <200 [facility] Comment on above: <200 mg/dL Desirable 200-240 mg/dL Borderline >240 mg/dL High Risk Glucose [Mass/Vol] 150 mg/dL 74-106 [facility] Comment on above: Fasting Glucose resu lt greater than or equal to 126 mg/dL suggests DIABETES MELLITUS per A.D.A. criteria. Potassium [Moles/Vol] 4.0 mmol/L 3.5-5.1 [facility] Protein [Mass/Vol] 7.3 g/dL 6.4-8.2 [facility] Sodium [Moles/Vol] 138 mmol/L 136-145 [facility] Triglyceride [Mass/Vol] 229 mg/dL <199 [facility] Comment on above: The drugs N-Acetylcy steine and Metamizole may falsely depress this assay.Serum Triglycerides Reference Interval Normal <150 mg/dL Borderline high 150 - 199 mg/dL High 200 - 499 mg/dL Very High > or = 500 mg/dL Laboratory - Chemistry and C hemistry - challengeOrdered By: Dr. Anglin on 11-19-2022 ALP [Catalytic activity/Vol] 98 U/L 45-117 [facility] ALT [Catalytic activity/Vol] 24 U/L 16-61 [facility] CO2 [Moles/Vol] 23.0 mmol/L 21.0-32.0 [facility] Globulin (S) [Mass/Vol] 3.3 g/dL 2.2-4.2 [facility] Urea nitrogen/Creatinine [Mass ratio] 21.7 mg/mg 10-20 [facility] No Panel InformationOrdered By: Dr. Anglin on 11-19-2022 Estimated GFR (MDRD) Amer 125 mL/min >60 [facility] Comment on above: GFR Calc Estimated GFR (MDRD) Non-Af Amer 103 mL/min >60 [facility] Comment on above: Non- GFR Calc Urine Microalbumin/Creatinine Ratio 180.0 mg/g CRE <30 [facility] Serum or plasma albumin bryan urement (mass/volume)Ordered By: Dr. Anglin on 11-19-2022 Albumin [Mass/Vol] 4.0 g/dL 3.2-5.0 [facility] Serum or plasma albumin/glob ulin mass ratioOrdered By: Dr. Anglin on 11-19-2022 Albumin/Globulin [Mass ratio] 1.2 {ratio} 0.9-2.4 [facility] Serum or plasma calcium bryan urement (mass/volume)Ordered By: Dr. Anglin on 11-19-2022 Calcium [Mass/Vol] 10.4 mg/dL 8.5-10.1 [facility] Serum or plasma cholesterol in HDL measurement (mass/volume)Ordered By: Dr. Anglin on 11-19-2022 Cholesterol in HDL [Mass/Vol] 30 mg/dL >40 [facility] Comment on above: The drugs N-Acetylcy steine and Metamizole may falsely depress this assay. Reference Range HDL <40 mg/dL Low HDL Cholesterol HDL >or= 60 mg/dL High HDL Cholesterol Serum or plasma cholesterol in VLDL measurement (mass/volume)Ordered By: Dr. Anglin on 11-19-2022 Cholesterol in VLDL [Mass/Vol] 46 mg/dL 5-40 [facility] Serum or plasma creatinine m easurement (mass/volume)Ordered By: Dr. Anglin on 11-19-2022 Creatinine [Mass/Vol] 0.83 mg/dL 0.70-1.30 [facility] Comment on above: The validity of the calculated GFR & GFRAA in patients over 70 years has not been determined. Clinical correlation is essential. Serum or plasma low density lipoprotein (LDL) cholesterol measurement (mass/volume)Ordered By: Dr. Anglin on 11-19-2022 Cholesterol in LDL [Mass/Vol] 129 mg/dL 0-130 [facility] Serum or plasma urea nitroge n measurement (mass/volume)Ordered By: Dr. Anglin on 11-19-2022 Urea nitrogen [Mass/Vol] 18 mg/dL 7-18 [facility] Thin prep Papanicolaou smear with manual screeningOrdered By: Dr. Anglin on 11-19-2022 Thin prep Papanicolaou smear with manual screening 22 U/L 15-37 [facility] Thin prep Papanicolaou smear with manual screening 7 5-15 [facility] Thin prep Papanicolaou smear with manual screening 587.0 mg/L NO RANGE EST. [facility] Urine creatinine measurement (mass/volume)Ordered By: Dr. Anglin on 11-19-2022 Creatinine (U) [Mass/Vol] 325.00 mg/dL NO RANGE EST. [facility] Whole blood hemoglobin A1c/t otal hemoglobin ratio (mass fraction)Ordered By: Dr. Anglin on 11-19-2022 HbA1c (Bld) [Mass fraction] 6.6 % 3.8-5.6 [facility] Comment on above: Normal < 5.7 % Predi abetic 5.7 - 6.4 % Diabetic >or= 6.5 % Please note range changes. Basophil percentageon 2021 Bilirubin [Mass/Vol] 0.60 mg/dL 0.20-1.00 [facility] Work Phone: Comment on above: For patients on eltr ombopag therapy, use of Dimension [place] TBIL is not recommended. Chloride [Moles/Vol] 109 mmol/L 98-107 [facility] Work Phone: Cholesterol [Mass/Vol] 172 mg/dL <200 [facility] Work Phone: Comment on above: <200 mg/dL Desirable 200-240 mg/dL Borderline >240 mg/dL High Risk Glucose [Mass/Vol] 146 mg/dL 74-106 [facility] Work Phone: Comment on above: Fasting Glucose resu lt greater than or equal to 126 mg/dL suggests DIABETES MELLITUS per A.D.A. criteria. Potassium [Moles/Vol] 4.4 mmol/L 3.5-5.1 [facility] Work Phone: Protein [Mass/Vol] 7.3 g/dL 6.4-8.2 [facility] Work Phone: Sodium [Moles/Vol] 140 mmol/L 136-145 [facility] Work Phone: Triglyceride [Mass/Vol] 195 mg/dL <199 [facility] Work Phone: Comment on above: The drugs N-Acetylcy steine and Metamizole may falsely depress this assay.Serum Triglycerides Reference Interval Normal <150 mg/dL Borderline high 150 - 199 mg/dL High 200 - 499 mg/dL Very High > or = 500 mg/dL Laboratory - Chemistry and C hemistry - challengeon 04-16-2022 ALP [Catalytic activity/Vol] 86 U/L 45-117 [facility] Work Phone: ALT [Catalytic activity/Vol] 21 U/L 16-61 [facility] Work Phone: CO2 [Moles/Vol] 23.0 mmol/L 21.0-32.0 [facility] Work Phone: Globulin (S) [Mass/Vol] 3.3 g/dL 2.2-4.2 [facility] Work Phone: Urea nitrogen/Creatinine [Mass ratio] 19.5 mg/mg 10-20 [facility] Work Phone: No Panel Informationon 04-16 Urine Microalbumin/Creatinine Ratio 104.1 mg/g CRE <30 [facility] Work Phone: Estimated GFR (MDRD) Amer 111 mL/min >60 [facility] Work Phone: Comment on above: GFR Calc Estimated GFR (MDRD) Non-Af Amer 92 mL/min >60 [facility] Work Phone: Comment on above: Non- GFR Calc Thyroid Stimulating Hormone (TSH) 2.65 uIU/mL 0.358-3.74 [facility] Work Phone: Serum or plasma albumin bryan urement (mass/volume)on 04-16-2022 Albumin [Mass/Vol] 4.0 g/dL 3.2-5.0 [facility] Work Phone: Serum or plasma albumin/glob ulin mass ratioon 04-16-2022 Albumin/Globulin [Mass ratio] 1.2 {ratio} 0.9-2.4 [facility] Work Phone: Serum or plasma calcium bryan urement (mass/volume)on 04-16-2022 Calcium [Mass/Vol] 10.0 mg/dL 8.5-10.1 [facility] Work Phone: Serum or plasma cholesterol in HDL measurement (mass/volume)on 04-16-2022 Cholesterol in HDL [Mass/Vol] 27 mg/dL >40 [facility] Work Phone: Comment on above: The drugs N-Acetylcy steine and Metamizole may falsely depress this assay. Reference Range HDL <40 mg/dL Low HDL Cholesterol HDL >or= 60 mg/dL High HDL Cholesterol Serum or plasma cholesterol in VLDL measurement (mass/volume)on 04-16-2022 Cholesterol in VLDL [Mass/Vol] 39 mg/dL 5-40 [facility] Work Phone: Serum or plasma creatinine m easurement (mass/volume)on 04-16-2022 Creatinine [Mass/Vol] 0.92 mg/dL 0.70-1.30 [facility] Work Phone: Comment on above: The validity of the calculated GFR & GFRAA in patients over 70 years has not been determined. Clinical correlation is essential. Serum or plasma low density lipoprotein (LDL) cholesterol measurement (mass/volume)on 04-16-2022 Cholesterol in LDL [Mass/Vol] 106 mg/dL 0-130 [facility] Work Phone: Serum or plasma urea nitroge n measurement (mass/volume)on 04-16-2022 Urea nitrogen [Mass/Vol] 18 mg/dL 7-18 [facility] Work Phone: Thin prep Papanicolaou smear with manual screeningon 04-16-2022 Thin prep Papanicolaou smear with manual screening 204.0 mg/L NO RANGE EST. [facility] Work Phone: Thin prep Papanicolaou smear with manual screening 17 U/L 15-37 [facility] Work Phone: Thin prep Papanicolaou smear with manual screening 8 5-15 [facility] Work Phone: Urine creatinine measurement (mass/volume)on 04-16-2022 Creatinine (U) [Mass/Vol] 196.00 mg/dL NO RANGE EST. [facility] Work Phone: Whole blood hemoglobin A1c/t otal hemoglobin ratio (mass fraction)on 04-16-2022 HbA1c (Bld) [Mass fraction] 6.1 % 3.8-5.6 [facility] Work Phone: Comment on above: Normal < 5.7 % Predi abetic 5.7 - 6.4 % Diabetic >or= 6.5 % Please note range changes. CNOVon 03-21-2022 CNOV Office Visit (GENSWS) ---- LALA GA ([id number]) 1970 M Date Time Provider Department 03/21/22 10:00 AM HARMAN ADAMS During your visit today, we recorded the following information about you: Harman Adams MD 03/26/2022 6:51 AM Signed Sebaceous cyst was no longer palpable. Visit cancelled Referring Provider: JAME ANGLIN [[id number]] Allergies As of Date: 03/21/2022 Noted Allergy Reaction BENZALKONIUM CHLORIDE 09/29/2019 5 - Intolerance LIPITOR (ATORVASTATIN CALCIUM) 12/22/2006 5 - Intolerance Date Reviewed: 03/21/2022 Reviewed by: Keesha Harris - Fully Assessed Reason for Visit: Procedure [88] Cmt: Excision Skin Lesion, Upper Back Primary Visit Diagnosis:Sebaceous cyst [L72.3] Prescriptions as of 03/26/2022 - ketoconazole (NIZORAL) 2 % cream - [...] mg by mouth daily at bedtime. - multivit-min/ferrou s fumarate (MULTI VITAMIN ORAL) Take by mouth once daily. - vitamin B complex (B COMPLEX 1 ORAL) Take by mouth once daily. - METFORMIN 500 MG TAB Take one(2) tablet two(2) times daily. - ZOCOR 40 MG TAB Take one(1) tablet daily at bedtime. Problem List As Of Date 03/21/2022 Noted Resolved CARBUNCLE NOS [L02.92, L02.93] 09/18/2006 SKIN HYPERTRO/ATROPH NOS [L91.9, L90.9] 12/22/2006 Encounter Status:Closed by HARMAN ADAMS on 03/26/[address] [facility] CNCOon 02-21-2022 CNCO Letter Text [facility] CNOVon 02-21-2022 CNOV Office Visit (GENSWS) ---- LUZLALA Orlando ([id number]) 1970 M Date Time Provider Department 02/21/22 1:00 PM HARMAN ADAMS During your visit today, we recorded the following information about you: Pulse Blood pressure Weight Height 70/minute 167/93 127 kg 1.829 m Zoë Granda [employer] Ca 02/22/2022 2:28 PM Signed Transcribed from erroneously cancelled office visit. - REVIEW OF SYSTEMS: General: The patient denies [...] Neurologic: The patient denies a history of epilepsy/convulsion s, denies headaches, denies head/spinal injuries, and denies [...] Mammogram screening? N/A Last Colonoscopy: 2020 Keesha Adams MD 02/27/2022 7:38 AM Signed HISTORY AND PHYSICAL Lala Ga 1970 REFERRING PHYSICIAN: Jame Anglin MD CHIEF COMPLAINT: skin lesion HPI: [...] mg by mouth daily at bedtime. - multivit-min/ferrou s fumarate (MULTI VITAMIN ORAL) Take by mouth once daily. - vitamin B complex (B COMPLEX 1 ORAL) Take by mouth once daily. - METFORMIN 500 MG TAB Take one(2) tablet two(2) times daily. 0 - ZOCOR 40 MG TAB Take one(1) tablet daily at bedtime. 0 No current facility-administer ed medications for this visit. ALLERGIES: Benzalkonium Chloride [...] entered by the nurse and reviewed by wv Nursing Notes: Zoë Sigala 02/22/2022 2:28 PM Signed Transcribed from erroneously cancelled office visit. - REVIEW OF SYSTEMS: Robbie (more content not included)... Normal [facility] Office Visit (GENSWS) ---- LALA GA ([id number]) 1970 M Date Time Provider Department 02/21/22 1:00 PM HARMAN ADAMS GENSWS During your visit today, we recorded the following information about you: Pulse Blood pressure Weight Height 70/minute 167/93 127 kg 1.829 m Keesha Harris 02/21/2022 12:56 PM Signed REVIEW OF SYSTEMS: General: The patient denies [...] Neurologic: The patient denies a history of epilepsy/convulsion s, denies headaches, denies head/spinal injuries, and denies [...] Mammogram screening? N/A Last Colonoscopy: 2020 Keesha Adams MD 02/27/2022 7:36 AM Signed Error in cancelling Referring Provider: JAME ANGLIN [[id number]] Allergies As of Date: 02/21/2022 Noted Allergy Reaction BENZALKONIUM CHLORIDE 09/29/2019 5 - Intolerance LIPITOR (ATORVASTATIN CALCIUM) 12/22/2006 5 - Intolerance Date Reviewed: 02/21/2022 Reviewed by: Keesha Harris - Fully Assessed Reason for Visit: Procedure [88] Cmt: Cyst, Right Upper Back Primary Visit Diagnosis:Sebaceous cyst [L72.3] Prescriptions as of 02/27/2022 - ketoconazole (NIZORAL) 2 % cream - [...] mg by mouth daily at bedtime. - multivit-min/ferrou s fumarate (MULTI VITAMIN ORAL) Take by mouth once daily. - vitamin B complex (B COMPLEX 1 ORAL) Take by mouth once daily. - METFORMIN 500 MG TAB Take one(2) tablet two(2) times daily. - ZOCOR 40 MG TAB Take one(1) tablet daily at bedtime. Problem List As Of Date 02/21/2022 Noted Resolved CARBUNCLE NOS [L02.92, L02.93] 09/18/2006 SKIN HYPERTRO/ATROPH NOS [L91.9, L90.9] 12/22/2006 Visit Notes: >> Keesha Harris Anne-Marie Feb 21, 2022 12:54 PM Status: Signed REVIEW OF SYSTEMS: General: The patient denies [...] embolism, denies shortness of breath, and denies coughin (more content not included)... Normal [facility] Vital Signs Date Time Vital Sign Value Performing Clinician Zita turk 02-21-2022 12:52-0400 Body height 182.9 cm Harman Adams MD Work Phone: [facility] 02-21-2022 12:52-0400 Body weight 127.01 kg Harman Adams MD Work Phone: [facility] 02-21-2022 12:52-0400 Diastolic blood pressure 93 mm[Hg] Harman Adams MD Work Phone: [facility] 02-21-2022 12:52-0400 Heart rate 70 /min Harman Adams MD Work Phone: [facility] 02-21-2022 12:52-0400 Systolic blood pressure 167 mm[Hg] Harman Adams MD Work Phone: [facility] Encounters Encounter Date Encounter Type Care Provider Facility Start: 06-17-2025 ambulatory Jame Anglin Facility:[facility] Start: 06-14-2025 ambulatory Jame Anglin Facility:[facility] Start: 05-19-2025 End: 05-19-2025 ambulatory Jamenadege Anglin Facility:[facility] Start: 02-15-2025 End: 02-15-[address] Jame Anglin MD Work Phone: -Laboratory [facility] Start: 02-15-2025 End: 02-15-[address] Jame Anglin MD -Laboratory [facility] Start: 02-15-2025 End: 02-15-2025 ambulatory Jame Anglin Facility:[facility] Start: 11-16-2024 End: 11-16-[address] Jame Anglin MD Work Phone: [facility] Work Phone: Start: 11-16-2024 End: 11-16-[address] [facility]: 11-16-2024 End: 11-16-2024 ambulatory Jame Anglin Facility:[facility] Start: 08-19-2024 End: 08-19-[address] [facility] Start: 08-19-2024 End: 08-19-2024 ambulatory Jame Anglin Facility:[facility] Start: 08-16-2024 End: 08-16-[address] [facility] Start: 08-16-2024 End: 08-16-2024 ambulatory Jame Anglin Facility:[facility] Start: 10-10-2023 End: 10-10-2023 ambulatory [facility] Work Phone: Start: 10-10-2023 End: 10-10-2023 Patient encounter procedure [facility] Start: 09-23-2023 End: 09-23-2023 ambulatory [facility] Work Phone: Start: 09-23-2023 End: 09-23-2023 Patient encounter procedure [facility] Work Phone: Start: 11-19-2022 End: 11-19-2022 ambulatory [facility] Work Phone: Start: 11-19-2022 End: 11-19-2022 Patient encounter procedure [facility] Start: 04-16-2022 End: 04-16-2022 ambulatory [facility] Work Phone: Start: 04-16-2022 End: 04-16-2022 Patient encounter procedure [facility] Start: 03-21-2022 End: 03-21-2022 Patient encounter procedure Harman Adams MD Work Phone: General Surgery Comment on above: Sebaceous cyst (Prim bere Dx) Start: 02-21-2022 End: 02-21-2022 Patient encounter procedure Harman Adams MD Work Phone: General Surgery Comment on above: Sebaceous cyst (Prim bere Dx) Procedures Date Procedure Procedure Detail Performing Clinician Start: 02-15-[address] Jame Anglin MD Work Phone: Comment on above: Hemolysis present, R esults could be affected. Start: 02-15-2025 Urine microalbumin/creatinine ratio measurement Dr. Jame Anglin MD Work Phone: Start: 02-15-2025 Vitamin D, 25-hydrox y measurement Dr. Jame Anglin MD Work Phone: Comment on above: Vitamin D StatusDefi ciency: <20 ng/mL (50nmol/L)Insufficiency: 20-30 ng/mL (50-75 nmol/L)Sufficiency: 30-100 ng/mL (75-250 nmol/L)Toxicity: >100 ng/mL (>250 nmol/L) Start: 11-16-[address] Jame Anglin MD Work Phone: Start: 11-16-2024 Urine microalbumin/creatinine ratio measurement Dr. Jame Anglin MD Work Phone: Comment on above: Previous reported re sult: 976.4 mg/g CREEdited by: ANA CRISTINA on 02/10/25:0802 AMENDED REPORT 02/10/25 0802 MALB:CREAT previously reported as: 976.4 mg/g CRE Start: 11-16-2024 Vitamin D, 25-hydrox y measurement Dr. Jame Anglin MD Work Phone: Comment on above: Vitamin D StatusDefi ciency: <20 ng/mL (50nmol/L)Insufficiency: 20-30 ng/mL (50-75 nmol/L)Sufficiency: 30-100 ng/mL (75-250 nmol/L)Toxicity: >100 ng/mL (>250 nmol/L) Start: 08-19-2024 Plain x-ray of pelvi s and lower extremity Dr. Jame Anglin MD Work Phone: Start: 11-21-2020 Colonoscopy Harman ragsdale MD Work Phone: Plan of Treatment Date Care Activity Detail Author Start: 11-21-2030 Colonoscopy COLONOSCOPY [facility] Start: 11-21-2030 COLORECTAL CANCER SCREENING COLORECTAL CANCER SCREENING [facility] Start: 04-25-2022 Influenza vaccination INFLUENZA (#1) [facility] Start: 12-03-2021 COVID-19 VACCINE (2 - Booster for Tres series) COVID-19 VACCINE (2 - Booster for Tres series) [facility] Start: 2020 SHINGRIX VACCINE (1 of 2) SHINGRIX V ACCINE (1 of 2) [facility] Start: 2015 COLOGUARD (FIT-DNA) COLOGUARD (FIT-D NA) [facility] Start: [address] COLONOGRAPHY [facility] Start: 2015 FECAL OCCULT BLOOD FECAL OCCULT BLOO D [facility] Start: 2015 SIGMOIDOSCOPY SIGMOIDOSCOPY [facility] Start: 1989 HEPATITIS B (1 of 3 - Risk 3-dose series) HEPATITIS B (1 of 3 - Risk 3-dose series) [facility] Start: 1989 Urine microalbumin profile DTAP,TDAP ,TD (1 - Tdap) [facility] Start: 1988 ANNUAL PCP TEAM CURTAIN DRIER JODY DISEASE VISIT ANNUAL PCP TEAM CHRONIC DISEASE VISIT [facility] Start: 1988 Hepatitis B surface antibody level LDL CHOLESTEROL [facility] Start: 1988 [facility] Start: 1988 HIV SCREENING HIV SCREENING [facility] Start: 1982 Adult depression scr eening assessment DEPRESSION SCREENING [facility] Start: 1980 3 comp foot exam completed DIABETIC FOOT EXAM [facility] Start: 1980 Hepatitis B screening URINE AL BUMIN:CREATININE RATIO [facility] Start: 1980 Hepatitis C antibody , confirmatory test DILATED RETINAL EXAM [facility] Start: 1976 PNEUMOCOCCAL (1 - PCV) PNEUMOCOCCAL (1 - PCV) [facility] Start: 1975 Hemoglobin A1c/Hemoglobin.total in Blood HBA1C [facility] Cl[facility] c Payers Date Payer Category Payer Self-pay [id number] 2019 Unknown [employer] PPO OOS [id number] 2019-Present [phone] [address] [place] [address] PPO [id number] 2019 Unknown [id number] Self-pay [id number] Unknown [id number] Unknown [id number] Unknown [id number] Unknown [id number] Unknown [id number] Unknown [id number] Unknown [id number] Social History Date Type Detail Facility Start: 01-12-2023 Tobacco smoking status NHIS Never smoked tobacco [facility] Work Phone: Start: 02-21-2022 End: 02-27-2022 Alcohol intake Current drinker of alcohol (finding) [facility] Start: 11-21-2020 History SDOH Alcohol Comment occasionally [facility] Start: 1970 Sex Assigned At Not on file [facility] [facility] Start: 02-11-2022 End: 03-21-2022 Exposure to SARS-CoV-2 (event) Not sure [facility] Start: 07-05-2014 End: 01-12-2023 Tobacco smoking status WYIS Unknown if ever smoked [facility] Start: 1970 Sex Assigned At Male [facility] Start: 11-22-2024 Sex Male (finding) [facility] Clinical Notes 02-21-2022 to 03-26-2022 Harman Adams MD - 03/26/2022 6:49 AM Cecilia Adams MD - 02/27/2022 7:36 AM Cecilia Adams MD - 02/27/2022 7:35 AM [facility] - 02/22/2022 2:26 PM EDT Note Date & Type Note Facility 03-26-2022 Note HNO ID: [id number] Author: Harman Adams MD Service: ? Author Type: Physician Type: Progress Notes Filed: 03/26/2022 6:51 AM Note Text: Sebaceous cyst was no longer palpable. Visit cancelled [facility] 03-26-2022 History of Present illness Narrative Sebaceous cyst was no longer palpable. Visit cancelled documented in this encounter [facility] 02-27-2022 Note HNO ID: [id number] Author: Harman Adams MD Service: ? Author Type: Physician Type: Progress Notes Filed: 02/27/2022 7:38 AM Note Text: HISTORY AND PHYSICAL [place] 1970 REFERRING PHYSICIAN: Jame Anglin MD CHIEF COMPLAINT: skin lesion HPI: [...] - ARTHROSCOPY SHOULDER W/ROTATOR CUFF RPR Right 2016 - COLONOSCOPY SCRN NOT HIGH RISK 11/21/2020 [...] entered by the nurse and reviewed by wv Nursing Notes: Zoë Sigala 02/22/2022 2:28 PM [...] - BACK P (more content not included)... [facility] 02-27-2022 Note HNO ID: [id number] Author: Harman Adams MD Service: ? Author Type: Physician Type: Progress Notes Filed: 02/27/2022 7:36 AM Note Text: Error in cancelling [facility] 02-27-2022 History of Present illness Narrative HISTORY AND PHYSICAL [place] 1970 REFERRING PHYSICIAN: Jame Anglin MD CHIEF COMPLAINT: skin lesion HPI: [...] Date ARTHROSCOPY SHOULDER W/ROTATOR CUFF RPR Right 2015 COLONOSCOPY SCRN NOT HIGH RISK 11/21/2020 CURRENT [...] and reviewed by me Nursing Notes: Zoë Sigala 02/22/2022 2:28 PM Signed Transcribed from erroneously cancelled office visit. REVIEW [...] last Mammogram screening? N/A Last Colonoscopy: 2020 Keeshacatie Harris PHYSICAL EXAMINATION: General: The patient is [...] follow-up with me in 1 month. Harman Adams MD documented in this encounter [facility] 02-27-2022 History of Present illness Narrative Error in cancelling documented in this encounter [facility] 02-22-2022 Nurse Note Transcribed from erroneously cancelled [...] 2020 Keesha Harris documented in this encounter [facility] 02-21-2022 Nurse Note REVIEW OF SYSTEMS: General: [...] 2020 Keesha Harris documented in this encounter [facility] Evaluation note Diagnosis Sebaceous cyst- Primary [facility] Sebaceous [facility]- Primary [facility] noteNo assessment information availableWMiddletown Hospital Work Phone: Reason for referral (narrative)No reason for referral information availableWMiddletown Hospital Work Phone: Advance Directives No Advanced Directives Records FoundDocuments on File Type Date 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 Advance Directive(s) 11/21/2020 8:34 AM Advance Directive(s) 11/08/2020 3:15 PM Advance Directive Response Recorded Date/ Time Advance Directives No June 11:13am Living Will No July 05, 2 014 11:13am Power of Data Communications Engineer No July 05, 2014 11:13am Advance Directive Response Recorded Date/ Time Advance Directives No June 10:13am Living Will No July 05, 2 014 10:13am Power of Data Communications Engineer No July 05, 2014 10:13am Advance Directive Response Recorded Date/ Time Advance Directives No June 11:13am Summary Purpose Family History No Family History Records FoundNo Family History Records Found Chief Complaint and Reason for Visit Chief Complaint Admit Date E-ORDER August 19, 2024 9:00am Additional Source Comments Source Comments (unrecognize d section and content) In the event this informatio n is protected by the Federal Confidentiality of Alcohol and Drug Abuse Patient Records regulations: The Federal rules restrict any use of the information to criminally investigate or prosecute any alcohol or drug abuse patient.[facility] the event this information is protected by the Federal Confidentiality of Alcohol and Drug Abuse Patient Records regulations: The Federal rules restrict any use of the information to criminally investigate or prosecute any alcohol or drug abuse patient.[facility] the event this information is protected by the Federal Confidentiality of Alcohol and Drug Abuse Patient Records regulations: The Federal rules restrict any use of the information to criminally investigate or prosecute any alcohol or drug abuse patient.[facility] Reason for Visit (unrecogniz ed section and content) Reason Comments Procedure Cyst right upper christina k Reason Comments Procedure Cyst, Right Upper Ba ck Reason Comments Procedure Excision Skin Lesion , Upper Back Care Teams (unrecognized sec tion and content) Lead Network Engineer Relationship Specialty Start Date End Date Jame Anglin MD [address] [place] [address] PCP - General Family Practice 09/20/19 Lead Network Engineer Relationship Specialty Start Date End Date Jame Anglin MD [address] [facility] [place] [place] [id number] PCP - General Family Practice 09/20/19 Team Status: Active Member Role Status Dates Dr. Jame Anglin MD Family Provider Active Dr. Jame Anglin MD Primary Care Provider Active Team Status: Inactive Member Role Status Dates Dr. Jame Anglin MD Primary Care Provide r, Attending Provider, Referring Provider Active Team Status: Inactive Member Role Status Dates Dr. Jame Anglin MD Primary Care Provider, Attending Glen villavicencio Active Team Status: Inactive Member Role Status Dates Dr. Jame Anglin MD Primary Care Provider Active Start: August 16, 2024 End: August 16, 2024 Dr. Jame Anglin MD Attending Provider Active St art: August 16, 2024 End: August 16, 2024 Dr. Jame Anglin MD Referring Provider Active St art: August 16, 2024 End: August 16, 2024 Team Status: Inactive Member Role Status Dates Dr. Jame Anglin MD Primary Care Provider Active Start: August 19, 2024 End: August 19, 2024 Dr. Jame Anglin MD Attending Provider Active St art: August 19, 2024 End: August 19, 2024 Dr. Jame Anglin MD Referring Provider Active St art: August 19, 2024 End: August 19, 2024 Team Status: Inactive Member Role Status Dates Dr. Jame Anglin MD Primary Care Provider Active Start: November 16, 2024 End: November 16, 2024 Dr. Jame Anglin MD Attending Provider Active St art: November 16, 2024 End: November 16, 2024 Dr. Jame Anglin MD Referring Provider Active St art: November 16, 2024 End: November 16, 2024 Team Status: Active Member Role/Relationship Status Dates Dr. Jame Anglin MD Family Provider Active Dr. Jame Anglin MD Primary Care Provider Active Team Status: Inactive Member Role/Relationship Status Dates Dr. Jame Anglin MD Primary Care Provider Active Start: November 16, 2024 End: November 16, 2024 Dr. Jame Anglin MD Attending Provider Active St art: November 16, 2024 End: November 16, 2024 Dr. Jame Anglin MD Referring Provider Active St art: November 16, 2024 End: November 16, 2024 Team Status: Inactive Member Role/Relationship Status Dates Dr. Jame Anglin MD Primary Care Provider Active Start: February 15, 2025 End: February 15, 2025 Dr. Jame Anglin MD Attending Provider Active St art: February 15, 2025 End: February 15, 2025 Dr. Jame Anglin MD Referring Provider Active St art: February 15, 2025 End: February 15, 2025 (unrecognized sect ion and content) No Status Records FoundNo Status Records Found INFORMATION SOURCE (unrecogn ized section and content) DATE CREATED AUTHOR 03/27/2022 [facility] DATE CREATED AUTHOR AUTHOR'S EFREN ARAGON 06/17/2025 [facility] Goals (unrecognized section and content) Goals may be documented in a n alternate sectionGoals may be documented in an alternate sectionGoals may be documented in an alternate sectionGoals may be documented in an alternate sectionGoals may be documented in an alternate sectionGoals may be documented in an alternate section FOR RECORDS PERTAINING TO PATIENTS WHO ARE [...] BE BASED ON THE PRIMARY CLINICAL RECORDS. [facility] [employer] provides no warranty or guarantee of the accuracy or completeness of information in this document.
--- NOTE | 2025-06-18 13:58 | CA.SCORE ---
Calcium Scoring Date of Study:: 06/17/25 Indications Indications: FH Coronary Calcium Scoring: High-resolution Computed Tomographic imaging of the chest was performed on [ 06/17/25], with particular attention paid to the coronary arteries. Images from the examination were analyzed for the presence and extent of coronary artery calcification , using coronary calcium quantification software. The patient tolerated the procedure well and there were no complications. The results of the coronary calcification analysis are provided below. Findings Coronary Artery Left Main (LM): 50.8 Left Anterior Descending (LAD): 261 Left Circumflex (LCX): 150 Right Coronary Artery (RCA): 496 Total Agatston Score: 957.8 Percentile Rankin Calcium Scoring Interpretation: Different methods to categorize the overall amount of coronary plaque. Overall amount CAC SIS Visual of coronary plaque P1 Mild -100 <2 1-2 vessels with mild amount of plaque P2 Moderate 101-300 3-4 1-2 vessels with moderate amount, 3 vessels with mild amount of plaque P3 Severe 301-999 5-7 3 vessels with moderate amount, 1 vessel with severe amount of plaque P4 Extensive >1000 >8 2-3 vessels with severe amount of plaque Calcium Score: Severe: 3 vessels w/moderate amount, 1 vessel w/severe amt of plaque Conclusion: Moderate three-vessel plaque disease present.
== END | disposition home or self-care (01) ==
LOC: CT 14:46
PROVIDERS: PCP Family Medicine; Referring Provider Family Medicine; Visit Provider Family Medicine
DX: Z91.89 Other specified personal risk factors, not elsewhere classified (principal); E11.9 Type 2 diabetes mellitus without complications
CPT/HCPCS: 75571; 76380